=== PATIENT | female | born 1985 | race Caucasian/White ===

== ENCOUNTER → 2021-12-15 09:13 | Outpatient (BNVA) | payer MEDICARE, MEDICAID, SELFPAY | PROVIDERS: PCP Internal Medicine; Visit Provider Nurse Practitioner Family | DX: R06.83 Snoring (principal); G47.19 Other hypersomnia; G25.81 Restless legs syndrome; E66.01 Morbid (severe) obesity due to excess calories; Z68.41 Body mass index [BMI] 40.0-44.9, adult | CPT/HCPCS: 99202 ==

== ENCOUNTER → 2022-01-09 19:30 | Outpatient (REF) | payer MEDICARE, MEDICAID, SELFPAY | LOC: HO.SL 19:30 | PROVIDERS: PCP Physician Assistant; Visit Provider Nurse Practitioner Family | DX: R06.83 Snoring (principal); G47.10 Hypersomnia, unspecified | CPT/HCPCS: 95810 ==

== ENCOUNTER → 2022-06-22 07:46 | Outpatient (BNVA) | payer MEDICARE, MEDICAID, SELFPAY | PROVIDERS: PCP Physician Assistant; Visit Provider Nurse Practitioner Family | DX: G25.81 Restless legs syndrome (principal); G47.19 Other hypersomnia; R06.83 Snoring; Z79.899 Other long term (current) drug therapy | CPT/HCPCS: 99212 ==

== ENCOUNTER 2025-02-04 10:12 | Outpatient (AMB) | payer MEDICARE, MEDICAID, SELFPAY ==
--- NOTE | 2025-02-04 10:18 | MHC.OFFVIS ---
Vital Signs 02/04/25 10:24 Height 5 ft 4 in Weight 257 lb BMI 44.1 BP 111/57 L Blood Pressure Location Lt brachial Position Sitting Pulse 67 Pulse Oximetry (%) 97 Oxygen Delivery Method Room Air Intake Visit Reasons: Diarrhea Intake Note: Patient new consult for diarrhea. Patient cc: nauseas, passing kidney stones, abdominal pain with bloating, acid reflex with med, daily chronic diarrhea x 3 weeks, hx hemorrhoids. Denies any other GI issues. Electronics Warfare Technician Required: No Accompanied by: Family/Other Allergies Penicillins Allergy (Mild, Verified 02/04/25 10:18) Rash adhesive tape Allergy (Mild, Uncoded 06/22/22 07:54) Unknown latex Allergy (Unknown, Uncoded 06/22/22 07:54) Unknown Medication List - Last Reconciled 02/04/25 by Cristina Carrington CNP bupropion HCl XL 150 mg PO QAM citalopram 40 mg PO DAILY ergocalciferol (vitamin D2) 1,250 mcg PO QWEEK gabapentin 600 mg PO BID ibuprofen 800 mg PO TID PRN ocrelizumab 600 mg IV .[id number] phentermine 15 mg PO DAILY sumatriptan succinate 100 mg PO DAILY PRN topiramate 25 mg PO QID HPI HPI Diarrhea: Details: Patient is a 39-year-old female with PMH of obesity, MS, RLS and sleep disturbance. Referred by PCP for further evaluation of diarrhea secondary to suspected food allergy. Patient is accompanied by LLOYD Duffy. Patient presents with persistent, unremitting diarrhea for the past six weeks, described as constant liquid stools with associated abdominal cramping and urgency. Episodes often begin with the sensation of needing to defecate but inability to pass stool, followed by sudden onset of watery diarrhea. No periods of symptom relief reported. Prior to this, stools were mostly solid but floating, with intermittent diarrhea episodes, often triggered by dietary indiscretions or hormonal changes, particularly premenstrually and during menses. Symptoms have intensified since onset of perimenopause. Associated symptoms include severe nausea without regular vomiting, though dry heaving occurs; no hematochezia or melena noted. Patient has trialed lactose-free, gluten-free, and low FODMAP diets, with only minor improvement in abdominal discomfort but persistent diarrhea. [id number] antidiarrheals (? Imodium) provide minimal benefit, allowing for improved continence but not resolution. Mild heartburn occurs intermittently, more pronounced with Ocrevus infusions. Occasional dysphagia is present, attributed to MS-related neuromuscular and cognitive dysfunction. MS (dx 2003), with ongoing Ocrevus infusions every five months, and a history of heart palpitations leading to phentermine dose reduction in March 2024. Weight has been stable in the 250s, with prior intentional weight loss to the 220s; recent weight gain is unintentional. Patient is currently under active workup with GI at [place], including recent and pending stool and blood studies, and is scheduled for colonoscopy and upper endoscopy in April 2025. Coordination of care is ongoing to avoid redundant testing and clarify diagnosis. Patient denies: fever/chills, vomiting, appetite changes, regurgitation, dysphasia, unintentional wt loss or melena/hematochezia. Social hx: -socially ETOH use -marijuana nightly for leg pain, denies other recreational drug use -former smoker, cessation 2022 - family hx as below -denies personal hx of CA PFSH Medical History (Updated 02/04/25 @ 12:34 by Cristina Carrington CNP) Diarrhea FH: cholecystectomy Anxiety associated with section Surgical History (Updated 02/04/25 @ 10:29 by Genesis Penny) Hx of cholecystectomy Hx of section H/O angioplasty Family History (Updated 02/04/25 @ 11:14 by Cristina Carrington CNP) Maternal Grandmother Sleep apnea Brain cancer Bladder cancer Breast cancer Maternal Aunt Non Hodgkin's lymphoma Maternal Grandfather Sleep apnea Mother Colon cancer Social History Household Members: Spouse and Children Alcohol intake: current Alcohol intake frequency: holidays/special occasions only Patient Tobacco Use Status: Current someday Tobacco user Substance Use Type: Marijuana Review of Systems Const Reports as per HPI ENT Reports as per HPI Card Reports as per HPI Resp Reports as per HPI GI Reports as per HPI Reports as per HPI Physical Exam Vital Signs: Last Vital Signs Pulse 67 02/04/25 10:24 BP 111/57 L 02/04/25 10:24 Pulse Ox 97 02/04/25 10:24 Oxygen Delivery Method Room Air 02/04/25 10:24 BMI result Body Mass Index 44.1 Const General: healthy appearing, no acute distress and well developed Nutritional Appearance: average body habitus Orientation/consciousness: patient oriented x3 HEENT Head: Yes normal to inspection, Yes normocephalic and Yes atraumatic Face and sinus: Yes normal facial exam Eyes General: appearance normal, both eyes and all related structures Neck Neck: Yes normal visual inspection Resp Effort & Inspection: normal respiratory effort, able to speak in complete sentences, no tracheal deviation and symmetric chest movement Auscultation: clear to auscultation bilaterally Cardio Jugular venous distension: no JVD Rate: regular rate Rhythm: regular rhythm Heart sounds: S1 normal heart sound present, S2 normal heart sound present, no gallops and no murmurs GI Inspection: Yes normal to inspection, No distended, Yes obesity and Yes striae Palpation (GI): Soft to palpation, not firm, nontender and No hepatosplenomegaly present Auscultation: normal bowel sounds Neuro General: patient oriented x3 Gait exam (Neuro): Normal gait present Psych Appearance: grossly normal Mental Status: mental status grossly normal Speech and movement: Normal speech and movement present Affect: normal affect Attitude: cooperative Thought process: Normal thought process present Thought content: Normal thought content present Insight: Good insight present (Psych) Judgement: Good judgement present (Psych) Assessment & Plan Assessment & Plan (1) Diarrhea: Code(s): R19.7 - Diarrhea, unspecified Category: Medical Qualifiers: Diarrhea type: unspecified type Qualified Code(s): R19.7 - Diarrhea, unspecified Plan: Persistent diarrhea with associated cramping, urgency, and watery stools lasting six weeks. Possible underlying causes include celiac disease, inflammatory bowel disease, or irritable bowel syndrome. Additional Testing: -Obtain detailed records from [facility], including stool and blood tests conducted and planned colonoscopy and upper endoscopy in April 2025. -Recommendations for labs to rule out celiac disease, IBD, thyroid dysfunction, and infections per previous GI work-up results. Medication Management:Prescribed Imodium 2mg oral PRN, max 16mg per 24 hours, for symptomatic relief. Lifestyle Recommendations: -Continue Low FODMAP diet; consider gradual introduction of tolerated high-fiber options, avoiding beans, nuts, and seeds that exacerbate symptoms. -Maintain hydration. Follow-Up:Three-month follow-up post-colonoscopy and endoscopy in May 2025 to evaluate findings, symptom progression, and patient preference for GI care continuity. (2) Multiple sclerosis: Code(s): G35 - Multiple sclerosis Category: Medical Plan: Cognitive challenges and muscle weakness associated with MS causing occasional difficulty swallowing. Additional Testing: None necessary for current management unless symptoms worsen. Medication Management: Maintain current Ocrevus infusion schedule. Lifestyle Recommendations: Monitor for worsening dysphagia to ensure proper hydration and nutritional intake. Plan Follow-up after 3 months or sooner as needed Time: I spent a total of 45 minutes on the date of encounter which includes: Preparing to see the patient (reviewed previous documentation, test results and medical history) Performing a medically appropriate exam and/or evaluation Ordering medications, tests, and procedures Documenting clinical information in the health record Medications: New loperamide 4 mg, followed by 2 mg after each loose stool; maximum: 16 mg/day 120 caps 0RF loose stool Coding Level of Care Code New Pt New Pt Level 4 (95176) Patient Type New Diagnoses Diarrhea, unspecified type R19.7 Diarrhea type: unspecified type Multiple sclerosis G35
[2025-02-04 10:24] VITALS: BP 111/57; PULSE 67; O2SAT 97; BMI 44.1
--- OUTSIDE RECORDS SUMMARY | 2025-02-04 10:47 | XMS_ITS | Patient Health Record ---
Author Organization [facility] Address [address] [place] [address] [address] [place] [address] Care Team Providers Care Contract Implementation Analyst Name Role Phone Unknown, Unknown Primary Care Provider Unavailab [facility] Unavailable [phone] Syed Hinton Unavailable [phone] Allergies Allergen (clinical drug ingredient) Drug/Non Drug Allergy documented on EMR Reaction Allergy Type Onset Date Status natalizumab Tysabri Unknown Drug Allergy Activ e amoxicillin Amoxicillin yeast infection Drug Allergy Active Latex Latex rash Allergy Active Results Component Value Reference Range Notes 25-Hydroxyvitamin D LCMS D2+ [id number] Reviewed date:05/27/2024 04:06:02 PM Interpretation: Performing Lab:Roseonlyrichard Peter, [facility], Phone - [phone], Director - Kd Notes/Report: 25-Hydroxy, Vitamin D 24 Reference Range: All Ages: Target levels 30 - 100 25-Hydroxy, Vitamin D-2 5.4 This test was developed and its performance characteristics determined by [employer]. It has not been cleared or approved by the Food and Drug Administration. 25-Hydroxy, Vitamin D-3 19 This test was developed and its performance characteristics determined by [facility]. It has not been cleared or approved by the Food and Drug Administration. Comp. Metabolic Panel (14)-3 15041 Reviewed date:05/27/2024 04:06:09 PM Interpretation: Performing Lab:Mariela Peter, [address] [facility], [place], Phone - [phone], Director - Kd Notes/Report: Glucose 111 70-99 mg/dL BUN 12 6-20 mg/dL Creatinine 0.81 0.57-1.00 mg/dL eGFR 95 >59 mL/min/1.73 BUN/Creatinine Ratio 15 9-23 Sodium 146 134-144 mmol/L Potassium 4.5 3.5-5.2 mmol/L Chloride 110 96-106 mmol/L Carbon Dioxide, Total 16 20-29 mmol/L Calcium 9.0 8.7-10.2 mg/dL Protein, Total 6.4 6.0-8.5 g/dL Albumin 4.1 3.9-4.9 g/dL Globulin, Total 2.3 1.5-4.5 g/dL Bilirubin, Total 0.4 0.0-1.2 mg/dL Alkaline Phosphatase 101 44-121 IU/L AST (SGOT) 14 0-40 IU/L ALT (SGPT) 35 0-32 IU/L Lipid Panel-[id number] Reviewed date:05/27/2024 04:06:04 PM Interpretation: Performing Lab:DannyCat Amaniamarlin [address], Phone - [phone], Director - MDJodry Notes/Report: Cholesterol, Total 198 100-199 mg/dL Triglycerides 69 0-149 mg/dL HDL Cholesterol 50 >39 mg/dL VLDL Cholesterol Avery 13 5-40 mg/dL LDL Chol Calc (NIH) 135 0-99 mg/dL [id number]-[id number] Reviewed date:05/27/2024 04:05:51 PM Interpretation: Performing Lab:aMriela [address], Phone - [phone], Director - MDJodry Notes/Report: TSH 1.120 0.450-4.500 uIU/mL Hemoglobin [id number] Reviewed date:05/27/2024 04:05:53 PM Interpretation: Performing Lab:[facility] [place] [address] [place] [address], Phone - [phone], Director - MDJodry Notes/Report: Hemoglobin A1c 5.4 4.8-5.6 % . Prediabetes: 5.7 - 6.4 Diabetes: >6.4 Glycemic control for adults with diabetes: <7.0 25-Hydroxyvitamin D LCME D2+ [id number] Reviewed date:05/28/2024 07:39:20 AM Interpretation: Performing Lab:[facility] [address], Phone - [phone], Director - MDJodry Notes/Report: 25-Hydroxy, Vitamin D TNP [facility] was unable to obtain a suitable specimen for the following test(s) and is providing the patient with recollection instructions. Comp. Metabolic Panel (14)-3 51687 Reviewed date:05/28/2024 07:39:22 AM Interpretation: Performing Lab:[facility] [place], [address] [place] [address], Phone - [phone], Director - MDJo Notes/Report: Glucose TNP [facility] was unable to collect sufficient specimen to perform the following test(s), and is providing the patient with re-collection instructions. [id number] Reviewed date:05/28/2024 07:39:24 AM Interpretation: Performing Lab:[facility] [address], Phone - [phone], Director - andreia Notes/Report: TSH TNP [facility] was unable to collect sufficient specimen to perform the following test(s), and is providing the patient with re-collection instructions. Request Problem TNP [facility] was unable to collect sufficient specimen to perform the following test(s), and is providing the patient with re-collection instructions. TEST: [id number] Comp. Metabolic Panel [phone] [id number] Lipid Panel [id number] TSH Request Problem TNP [facility] was unable to collect sufficient specimen to perform the following test(s), and is providing the patient with re-collection instructions. TEST: [id number] Hemoglobin A1c Request Problem TNP [facility] was unable to obtain a suitable specimen for the following test(s) and is providing the patient with recollection instructions. TEST: [id number] 25-Hydroxyvitamin D LCMS D2+D3 Lipid Panel-[id number] Reviewed date:05/28/2024 07:39:26 AM Interpretation: Performing Lab:[facility] [address], Phone - [phone], Director - MDJodry Notes/Report: Cholesterol, Total TNP [facility] was unable to collect sufficient specimen to perform the following test(s), and is providing the patient with re-collection instructions. VLDL Cholesterol Avery TNP Unable to calculate result since non-numeric result obtained for component test. Hemoglobin [id number] Reviewed date:05/28/2024 07:39:30 AM Interpretation: Performing Lab:[facility] [place], [address] [facility], Phone - [phone], Director - Kd Notes/Report: Hemoglobin A1c [facility] was unable to collect sufficient specimen to perform the following test(s), and is providing the patient with re-collection instructions. . Prediabetes: 5.7 - 6.4 Diabetes: >6.4 Glycemic control for adults with diabetes: <7.0 Reason For Referral Reason Unspecific food alcides rgy causing diarrhea please evaluate and treat Diagnosis 1 Allergy to other sesar ds (Z91.018) Referral Organization [facility] Referring Provider First Name Syed Referring Provider Last Name Jmaaal Referred Provider Specialty Gastroentero logy General Notes Referral was faxed t o [facility]. please contact patient for scheduling., ParkerSilvia 08/16/2024 04:25:39 PM > Referral Priority Routine Medications Medication SIG (Take, Route, Frequency, Duration) Notes Start Date End Date Status Citalopram Hydrobromide 40 MG Take 1 tablet Orally Once a day Active Gemtesa 75 MG 1 tablet Orally Once a day Active Phentermine HCl 15 MG 1 capsule Orally O nce a day; Duration: 30 days 12/17/2024 Active Topiramate 100 MG 1 tablet Orally bedt eric; Duration: 30 day(s) Active Neurontin 600 MG 1 tablet Orally bedt eric; Duration: 30 day(s) Active Lasix 20 MG 1 tablet Orally Once a day; Duration: 90 Not-Taking Phentermine HCl 30 MG 1 tablet Orally On ce a day; Duration: 28 days 03/21/2023 Not-Takin g Zepbound 2.5 MG/0.5ML 0.5 mL Subcutaneou s weekly; Duration: 30 days Not-Taking Cranberry 1000 MG 21747 units Orally bedtime Active Ocrevus 300 MG/10ML 600mg Intravenous ev emma 6 months Active Phentermine HCl 30 MG 1 capsule Orally O nce a day; Duration: 30 days 08/16/2024 Not-Harmanin g Vitamin D 25 MCG (1000 UT) 1 tablet Orally Once a day Active Immunizations Vaccine Route Administration Date Status Comme nts Influenza (split), seasonal, intradermal, preservative free Unknown 04/29/2021 Administered Social History Tobacco Use: Social History Observation Description Date Details (start date - stop date) Never Smoker NA - NA Tobacco Use/Smoking Question Answer Notes Are you a nonsmoker Alcohol Screen (Audit-C) Question Answer Notes Did you have a drink containing alcohol in the p ast year? No Points 0 Interpretation Negative Problems Problem Type SNOMED Code ICD Code Onset Dates Problem Status W/U Status Risk Notes Problem Anemia (620626087) Anemia, unspecified (D64.9) Active confirmed Problem Vitamin D deficiency (14915380) Vitamin D deficiency, unspecified (E55.9) Active confirmed Problem Morbid obesity (disorder) (718271276) Morbid (severe) obesity due to excess calories (E66.01) Active confirmed Problem Mixed hyperlipidemia (318796502) Mixed hyperlipidemia (E78.2) Active confirmed Problem Generalized anxiety disorder (35362323) Generalized anxiety disorder (F41.1) Active confirmed Problem Multiple sclerosis (15112440) Multiple sclerosis (G35) Active confirmed Problem Chronic migraine without aura, non-refractory (disorder) (874753338291164) Migraine without aura, not intractable, without status migrainosus (G43.009) Active confirmed Problem Insomnia (869892892) Insomnia, unspecified (G47.00) Active confirmed Problem Polyneuropathy (32404812) Polyneuropathy, unspecified (G62.9) Active confirmed Problem Chronic pain syndrome (909167474) Chronic pain syndrome (G89.4) Active confirmed Problem Constipation (38177074) Constipation, unspecified (K59.00) Active confirmed Problem Snoring (20476282) Snoring (R06.83) Active confirmed Problem Food allergy (553167179) Allergy to other foods (Z91.018) Active confirmed Vital Signs Heart Rate 78 /min 01/15/2025 Temperature 96.6 degrees Fahrenheit 01/15/2025 Blood pressure diastolic 80 mm Hg 01/15/2025 Oximetry 99 % 01/15/2025 Height 65 in 01/15/2025 Blood pressure systolic 130 mm Hg 01/15/2025 Weight 265.8 lbs 01/15/2025 BMI 44.23 kg/m2 01/15/2025 Encounters Encounter Location Date Provider Diagnosis [facility] [address] [address] 04/26/2024 [facility] Morbid (severe) obes ity due to excess calories E66.01 ; Dietary counseling and surveillance Z71.3 ; Impaired fasting glucose R73.01 ; Mixed hyperlipidemia E78.2 ; Generalized anxiety disorder F41.1 ; Multiple sclerosis G35 and Vitamin D deficiency, unspecified E55.[address] [place] [address] 05/24/2024 DODSON GUL Morbid (severe) obes ity due to excess calories E66.01 ; Dietary counseling and surveillance Z71.3 and Mixed hyperlipidemia E78.[address] [place] [address] 06/24/2024 DODSON GUL Morbid (severe) obes ity due to excess calories E66.01 ; Dietary counseling and surveillance Z71.3 and Mixed hyperlipidemia E78.[address] [place] [address] 07/17/2024 DODSON GUL Morbid (severe) obes ity due to excess calories E66.01 ; Dietary counseling and surveillance Z71.3 and Mixed hyperlipidemia E78.[address] [place] [address] 08/16/2024 Ghadeer Mazloum Morbid (severe) obes ity due to excess calories E66.01 ; Dietary counseling and surveillance Z71.3 ; Mixed hyperlipidemia E78.2 and Allergy to other foods Z91.[address] [place] [address] 09/25/2024 Ghadeer Mazloum Morbid (severe) obes ity due to excess calories E66.01 ; Dietary counseling and surveillance Z71.3 and Mixed hyperlipidemia E78.[address] [place] [address] 10/23/2024 Ghadeer Mazloum Morbid (severe) obes ity due to excess calories E66.01 and Dietary counseling and surveillance Z71.[address] [place] [address] 11/19/2024 Ghadeer Mazloum Morbid (severe) obes ity due to excess calories E66.01 and Dietary counseling and surveillance Z71.[address] [place] [address] 01/15/2025 [facility] Morbid (severe) obes ity due to excess calories E66.01 and Dietary counseling and surveillance Z71.[address] [place] [address] 06/24/[address] [place] [address] 08/16/[address] [place] [address] 09/25/2024 Hongroni Hinton [address] [place] [address] 12/17/2024 Syed Hinton Morbid (severe) obes ity due to excess calories E66.[address] [place] [address] 01/27/[address] [address] [place] [address] 10/01/2024 Unknown Unknown [address] [place] [address] 10/03/2024 Syed Marcochristina Assessments Encounter Date Diagnosis (ICD Code) Assessment Notes Treatment Notes Treatment Clinical Notes Section Notes 05/24/2024 Morbid (severe) obesity due to excess calories (ICD-10 - E66.01) Miriam is 38 years old lady with MS, migraine headaches, generalized anxiety disorder, anemia, vitamin D deficiency, polyneuropathy, insomnia is here for medical weight management. She also had blood work done which is not complete. Plan is as follows Hyperlipidemia. Cholesterol panel is within reasonable limits. Dietary recommendations. Food recall was done today and patient advised to be on low calorie, low carbohydrate diet. Restrict calories to less than 1500 kcal in 24 hours. Low glycemic index foods and encouraged. Meal replacements were recommended. Advised to use siaa-oav-giapqtv multivitamins and vitamin D. Advised to use calorie counter and adhere to portion control. Monthly goal is to lose 4-6 pounds Pharmacotherapy. started on phentermine 15 mg and will titrate up as tolerated Side effects explained to the patient. Goal is to lose 3-5% of body weight in 3 months. Exercise. Patient encouraged to increase frequency, intensity and duration of exercise. Encouraged to burn at least 250-500 kcal in one session. Also encouraged to do weight training Assess. Different risk factors discussed with the patient and addressed Advise. Patient was given clear And specific advise that she will comply with Low-calorie diet and try not to exceed more than 1300 kcal in 24 hours. Agree. Mutually agreed to work together to achieve appropriate goals Assist. Motivational interviewing done. Arrange. Follow-up appointment arranged. Counseling. 20 minutes spent Face to face with the patient more than 50% of time was spent counseling the hemoglobin A1c is normal. Screening blood work reviewed. 05/24/2024 Dietary counseling and surveillance (ICD-10 - Z71.3) Miriam is 38 years old lady with MS, migraine headaches, generalized anxiety disorder, anemia, vitamin D deficiency, polyneuropathy, insomnia is here for medical weight management. She also had blood work done which is not complete. Plan is as follows Hyperlipidemia. Cholesterol panel is within reasonable limits. Dietary recommendations. Food recall was done today and patient advised to be on low calorie, low carbohydrate diet. Restrict calories to less than 1500 kcal in 24 hours. Low glycemic index foods and encouraged. Meal replacements were recommended. Advised to use qzwa-jkp-dptfasf multivitamins and vitamin D. Advised to use calorie counter and adhere to portion control. Monthly goal is to lose 4-6 pounds Pharmacotherapy. started on phentermine 15 mg and will titrate up as tolerated Side effects explained to the patient. Goal is to lose 3-5% of body weight in 3 months. Exercise. Patient encouraged to increase frequency, intensity and duration of exercise. Encouraged to burn at least 250-500 kcal in one session. Also encouraged to do weight training Assess. Different risk factors discussed with the patient and addressed Advise. Patient was given clear And specific advise that she will comply with Low-calorie diet and try not to exceed more than 1300 kcal in 24 hours. Agree. Mutually agreed to work together to achieve appropriate goals Assist. Motivational interviewing done. Arrange. Follow-up appointment arranged. Counseling. 20 minutes spent Face to face with the patient more than 50% of time was spent counseling the hemoglobin A1c is normal. Screening blood work reviewed. 06/24/2024 Morbid (severe) obesity due to excess calories (ICD-10 - E66.01) Miriam is 38 years old lady with MS, migraine headaches, generalized anxiety disorder, anemia, vitamin D deficiency, polyneuropathy, insomnia is here for medical weight management. She gained 4 pounds since last visit. Plan is as follows Hyperlipidemia. Cholesterol panel is within reasonable limits. Dietary recommendations. Food recall was done today and patient advised to be on low calorie, low carbohydrate diet. Restrict calories to less than 1500 kcal in 24 hours. Low glycemic index foods and encouraged. Meal replacements were recommended. Advised to use hsyg-idv-vkejany multivitamins and vitamin D. Advised to use calorie counter and adhere to portion control. Monthly goal is to lose 4-6 pounds Pharmacotherapy. increase phentermine 30 mg and will titrate up as tolerated Side effects explained to the patient. Goal is to lose 3-5% of body weight in 3 months. She has multiple comorbidities like MS and she walks with a walker, hyperlipidemia, impaired fasting glucose and she is struggling to lose weight on conventional medications like phentermine. She will benefit from wegovy or zepbound and decreased risk of cardiovascular disease, strokes, cancers in future. We will send prescription for Zepbound and meanwhile she will continue on phentermine and once she receives Zepbound she will stop phentermine. Exercise. Patient encouraged to increase frequency, intensity and duration of exercise. Encouraged to burn at least 250-500 kcal in one session. Also encouraged to do weight training Assess. Different risk factors discussed with the patient and addressed Advise. Patient was given clear And specific advise that she will comply with Low-calorie diet and try not to exceed more than 1300 kcal in 24 hours. Agree. Mutually agreed to work together to achieve appropriate goals Assist. Motivational interviewing done. Arrange. Follow-up appointment arranged. Counseling. 20 minutes spent Face to face with the patient more than 50% of time was spent counseling the hemoglobin A1c is normal. Screening blood work reviewed. 06/24/2024 Dietary counseling and surveillance (ICD-10 - Z71.3) Miriam is 38 years old lady with MS, migraine headaches, generalized anxiety disorder, anemia, vitamin D deficiency, polyneuropathy, insomnia is here for medical weight management. She gained 4 pounds since last visit. Plan is as follows Hyperlipidemia. Cholesterol panel is within reasonable limits. Dietary recommendations. Food recall was done today and patient advised to be on low calorie, low carbohydrate diet. Restrict calories to less than 1500 kcal in 24 hours. Low glycemic index foods and encouraged. Meal replacements were recommended. Advised to use cdsp-xuc-nyzkuod multivitamins and vitamin D. Advised to use calorie counter and adhere to portion control. Monthly goal is to lose 4-6 pounds Pharmacotherapy. increase phentermine 30 mg and will titrate up as tolerated Side effects explained to the patient. Goal is to lose 3-5% of body weight in 3 months. She has multiple comorbidities like MS and she walks with a walker, hyperlipidemia, impaired fasting glucose and she is struggling to lose weight on conventional medications like phentermine. She will benefit from wegovy or zepbound and decreased risk of cardiovascular disease, strokes, cancers in future. We will send prescription for Zepbound and meanwhile she will continue on phentermine and once she receives Zepbound she will stop phentermine. Exercise. Patient encouraged to increase frequency, intensity and duration of exercise. Encouraged to burn at least 250-500 kcal in one session. Also encouraged to do weight training Assess. Different risk factors discussed with the patient and addressed Advise. Patient was given clear And specific advise that she will comply with Low-calorie diet and try not to exceed more than 1300 kcal in 24 hours. Agree. Mutually agreed to work together to achieve appropriate goals Assist. Motivational interviewing done. Arrange. Follow-up appointment arranged. Counseling. 20 minutes spent Face to face with the patient more than 50% of time was spent counseling the hemoglobin A1c is normal. Screening blood work reviewed. 07/17/2024 Morbid (severe) obesity due to excess calories (ICD-10 - E66.01) Miriam is 38 years old lady with MS, migraine headaches, generalized anxiety disorder, anemia, vitamin D deficiency, polyneuropathy, insomnia is here for medical weight management. She lost 8 pounds since last visit. Plan is as follows Hyperlipidemia. Cholesterol panel is within reasonable limits. Dietary recommendations. Food recall was done today and patient advised to be on low calorie, low carbohydrate diet. Restrict calories to less than 1500 kcal in 24 hours. Low glycemic index foods and encouraged. Meal replacements were recommended. Advised to use uyhb-ipu-bqixrja multivitamins and vitamin D. Advised to use calorie counter and adhere to portion control. Monthly goal is to lose 4-6 pounds Pharmacotherapy. increase phentermine 30 mg and will titrate up as tolerated Side effects explained to the patient. Goal is to lose 3-5% of body weight in 3 months. She has multiple comorbidities like MS and she walks with a walker, hyperlipidemia, impaired fasting glucose and she is struggling to lose weight on conventional medications like phentermine. She will benefit from wegovy or zepbound and decreased risk of cardiovascular disease, strokes, cancers in future. We will send prescription for Zepbound and meanwhile she will continue on phentermine and once she receives Zepbound she will stop phentermine. Exercise. Patient encouraged to increase frequency, intensity and duration of exercise. Encouraged to burn at least 250-500 kcal in one session. Also encouraged to do weight training Assess. Different risk factors discussed with the patient and addressed Advise. Patient was given clear And specific advise that she will comply with Low-calorie diet and try not to exceed more than 1300 kcal in 24 hours. Agree. Mutually agreed to work together to achieve appropriate goals Assist. Motivational interviewing done. Arrange. Follow-up appointment arranged. Counseling. 15 minutes spent Face to face with the patient more than 50% of time was spent counseling 07/17/2024 Dietary counseling and surveillance (ICD-10 - Z71.3) Miriam is 38 years old lady with MS, migraine headaches, generalized anxiety disorder, anemia, vitamin D deficiency, polyneuropathy, insomnia is here for medical weight management. She lost 8 pounds since last visit. Plan is as follows Hyperlipidemia. Cholesterol panel is within reasonable limits. Dietary recommendations. Food recall was done today and patient advised to be on low calorie, low carbohydrate diet. Restrict calories to less than 1500 kcal in 24 hours. Low glycemic index foods and encouraged. Meal replacements were recommended. Advised to use eddu-tvy-nyptkuh multivitamins and vitamin D. Advised to use calorie counter and adhere to portion control. Monthly goal is to lose 4-6 pounds Pharmacotherapy. increase phentermine 30 mg and will titrate up as tolerated Side effects explained to the patient. Goal is to lose 3-5% of body weight in 3 months. She has multiple comorbidities like MS and she walks with a walker, hyperlipidemia, impaired fasting glucose and she is struggling to lose weight on conventional medications like phentermine. She will benefit from wegovy or zepbound and decreased risk of cardiovascular disease, strokes, cancers in future. We will send prescription for Zepbound and meanwhile she will continue on phentermine and once she receives Zepbound she will stop phentermine. Exercise. Patient encouraged to increase frequency, intensity and duration of exercise. Encouraged to burn at least 250-500 kcal in one session. Also encouraged to do weight training Assess. Different risk factors discussed with the patient and addressed Advise. Patient was given clear And specific advise that she will comply with Low-calorie diet and try not to exceed more than 1300 kcal in 24 hours. Agree. Mutually agreed to work together to achieve appropriate goals Assist. Motivational interviewing done. Arrange. Follow-up appointment arranged. Counseling. 15 minutes spent Face to face with the patient more than 50% of time was spent counseling 08/16/2024 Morbid (severe) obesity due to excess calories (ICD-10 - E66.01) Miriam is 39 years old lady with MS, migraine headaches, generalized anxiety disorder, anemia, vitamin D deficiency, polyneuropathy, insomnia is here for medical weight management. She Gained 3 pounds since last visit. She has been noncompliant with the diet and the medication. Plan is as follows Hyperlipidemia. Cholesterol panel is within reasonable limits. Dietary recommendations. Food recall was done today and patient advised to be on low calorie, low carbohydrate diet. Restrict calories to less than 1500 kcal in 24 hours. Low glycemic index foods and encouraged. Meal replacements were recommended. Advised to use dmyq-vji-mtwofbz multivitamins and vitamin D. Advised to use calorie counter and adhere to portion control. Monthly goal is to lose 4-6 pounds Pharmacotherapy. Continue on phentermine 30 mg and will titrate up as tolerated Side effects explained to the patient. Goal is to lose 3-5% of body weight in 3 months. She has multiple comorbidities like MS and she walks with a walker, hyperlipidemia, impaired fasting glucose and she is struggling to lose weight on conventional medications like phentermine. Awaiting Zepbound approval. She will benefit from wegovy or zepbound and decreased risk of cardiovascular disease, strokes, cancers in future. We will send prescription for Zepbound and meanwhile she will continue on phentermine and once she receives Zepbound she will stop phentermine. Exercise. Patient encouraged to increase frequency, intensity and duration of exercise. Encouraged to burn at least 250-500 kcal in one session. Also encouraged to do weight training Assess. Different risk factors discussed with the patient and addressed Advise. Patient was given clear And specific advise that she will comply with Low-calorie diet and try not to exceed more than 1300 kcal in 24 hours. Agree. Mutually agreed to work together to achieve appropriate goals Assist. Motivational interviewing done. Arrange. Follow-up appointment arranged. Counseling. 15 minutes spent Face to face with the patient more than 50% of time was spent counseling Food sensitivity causing diarrhea - I have informed patient that leafy greens are usually high in fibers thus it causes diarrhea. We will also defer to GI for further eval. I have rendered the services for this patient under direct supervision of Dr. Law, who did not see the patient but was available upon request 08/16/2024 Dietary counseling and surveillance (ICD-10 - Z71.3) Miriam is 39 years old lady with MS, migraine headaches, generalized anxiety disorder, anemia, vitamin D deficiency, polyneuropathy, insomnia is here for medical weight management. She Gained 3 pounds since last visit. She has been noncompliant with the diet and the medication. Plan is as follows Hyperlipidemia. Cholesterol panel is within reasonable limits. Dietary recommendations. Food recall was done today and patient advised to be on low calorie, low carbohydrate diet. Restrict calories to less than 1500 kcal in 24 hours. Low glycemic index foods and encouraged. Meal replacements were recommended. Advised to use hnwj-zgy-tejvdai multivitamins and vitamin D. Advised to use calorie counter and adhere to portion control. Monthly goal is to lose 4-6 pounds Pharmacotherapy. Continue on phentermine 30 mg and will titrate up as tolerated Side effects explained to the patient. Goal is to lose 3-5% of body weight in 3 months. She has multiple comorbidities like MS and she walks with a walker, hyperlipidemia, impaired fasting glucose and she is struggling to lose weight on conventional medications like phentermine. Awaiting Zepbound approval. She will benefit from wegovy or zepbound and decreased risk of cardiovascular disease, strokes, cancers in future. We will send prescription for Zepbound and meanwhile she will continue on phentermine and once she receives Zepbound she will stop phentermine. Exercise. Patient encouraged to increase frequency, intensity and duration of exercise. Encouraged to burn at least 250-500 kcal in one session. Also encouraged to do weight training Assess. Different risk factors discussed with the patient and addressed Advise. Patient was given clear And specific advise that she will comply with Low-calorie diet and try not to exceed more than 1300 kcal in 24 hours. Agree. Mutually agreed to work together to achieve appropriate goals Assist. Motivational interviewing done. Arrange. Follow-up appointment arranged. Counseling. 15 minutes spent Face to face with the patient more than 50% of time was spent counseling Food sensitivity causing diarrhea - I have informed patient that leafy greens are usually high in fibers thus it causes diarrhea. We will also defer to GI for further eval. I have rendered the services for this patient under direct supervision of Dr. Law, who did not see the patient but was available upon request 09/25/2024 Dietary counseling and surveillance (ICD-10 - Z71.3) Miriam is 39 years old lady with MS, migraine headaches, generalized anxiety disorder, anemia, vitamin D deficiency, polyneuropathy, insomnia is here for medical weight management. She Gained 3 pounds since last visit. She has been noncompliant with the diet and the medication. Plan is as follows Hyperlipidemia. Cholesterol panel is within reasonable limits. Dietary recommendations. Food recall was done today and patient advised to be on low calorie, low carbohydrate diet. Restrict calories to less than 1500 kcal in 24 hours. Low glycemic index foods and encouraged. Meal replacements were recommended. Advised to use kkim-ynn-kfxbbgj multivitamins and vitamin D. Advised to use calorie counter and adhere to portion control. Monthly goal is to lose 4-6 pounds Pharmacotherapy. Continue on phentermine 30 mg and will titrate up as tolerated Side effects explained to the patient. Goal is to lose 3-5% of body weight in 3 months. She has multiple comorbidities like MS and she walks with a walker, hyperlipidemia, impaired fasting glucose and she is struggling to lose weight on conventional medications like phentermine. Awaiting Zepbound approval. She will benefit from wegovy or zepbound and decreased risk of cardiovascular disease, strokes, cancers in future. We will send prescription for Zepbound and meanwhile she will continue on phentermine and once she receives Zepbound she will stop phentermine. Exercise. Patient encouraged to increase frequency, intensity and duration of exercise. Encouraged to burn at least 250-500 kcal in one session. Also encouraged to do weight training Assess. Different risk factors discussed with the patient and addressed Advise. Patient was given clear And specific advise that she will comply with Low-calorie diet and try not to exceed more than 1300 kcal in 24 hours. Agree. Mutually agreed to work together to achieve appropriate goals Assist. Motivational interviewing done. Arrange. Follow-up appointment arranged. Counseling. 15 minutes spent Face to face with the patient more than 50% of time was spent counseling I have rendered the services for this patient under direct supervision of Dr. Law, who did not see the patient but was available upon request 10/23/2024 Morbid (severe) obesity due to excess calories (ICD-10 - E66.01) Miriam is 39 years old lady with MS, migraine headaches, generalized anxiety disorder, anemia, vitamin D deficiency, polyneuropathy, insomnia is here for medical weight management. She Gained 3 pounds since last visit. She has been noncompliant with the diet and the medication. Plan is as follows Hyperlipidemia. Cholesterol panel is within reasonable limits. Dietary recommendations. Food recall was done today and patient advised to be on low calorie, low carbohydrate diet. Restrict calories to less than 1500 kcal in 24 hours. Low glycemic index foods and encouraged. Meal replacements were recommended. Advised to use fbkw-sxm-ubecsbq multivitamins and vitamin D. Advised to use calorie counter and adhere to portion control. Monthly goal is to lose 4-6 pounds Pharmacotherapy.Dec rease phentermine to 15 mg. Side effects explained to the patient. Goal is to lose 3-5% of body weight in 3 months. She has multiple comorbidities like MS and she walks with a walker, hyperlipidemia, impaired fasting glucose and she is struggling to lose weight on conventional medications like phentermine. Unfortunately, her insurance does not cover GLP-1/. Exercise. Patient encouraged to increase frequency, intensity and duration of exercise. Encouraged to burn at least 250-500 kcal in one session. Also encouraged to do weight training Assess. Different risk factors discussed with the patient and addressed Advise. Patient was given clear And specific advise that she will comply with Low-calorie diet and try not to exceed more than 1300 kcal in 24 hours. Agree. Mutually agreed to work together to achieve appropriate goals Assist. Motivational interviewing done. Arrange. Follow-up appointment arranged. Counseling. 15 minutes spent Face to face with the patient more than 50% of time was spent counseling I have rendered the services for this patient under direct supervision of Dr. Law, who did not see the patient but was available upon request 10/23/2024 Dietary counseling and surveillance (ICD-10 - Z71.3) Miriam is 39 years old lady with MS, migraine headaches, generalized anxiety disorder, anemia, vitamin D deficiency, polyneuropathy, insomnia is here for medical weight management. She Gained 3 pounds since last visit. She has been noncompliant with the diet and the medication. Plan is as follows Hyperlipidemia. Cholesterol panel is within reasonable limits. Dietary recommendations. Food recall was done today and patient advised to be on low calorie, low carbohydrate diet. Restrict calories to less than 1500 kcal in 24 hours. Low glycemic index foods and encouraged. Meal replacements were recommended. Advised to use xisp-rlj-axniabi multivitamins and vitamin D. Advised to use calorie counter and adhere to portion control. Monthly goal is to lose 4-6 pounds Pharmacotherapy.Dec rease phentermine to 15 mg. Side effects explained to the patient. Goal is to lose 3-5% of body weight in 3 months. She has multiple comorbidities like MS and she walks with a walker, hyperlipidemia, impaired fasting glucose and she is struggling to lose weight on conventional medications like phentermine. Unfortunately, her insurance does not cover GLP-1/. Exercise. Patient encouraged to increase frequency, intensity and duration of exercise. Encouraged to burn at least 250-500 kcal in one session. Also encouraged to do weight training Assess. Different risk factors discussed with the patient and addressed Advise. Patient was given clear And specific advise that she will comply with Low-calorie diet and try not to exceed more than 1300 kcal in 24 hours. Agree. Mutually agreed to work together to achieve appropriate goals Assist. Motivational interviewing done. Arrange. Follow-up appointment arranged. Counseling. 15 minutes spent Face to face with the patient more than 50% of time was spent counseling I have rendered the services for this patient under direct supervision of Dr. Law, who did not see the patient but was available upon request 11/19/2024 Morbid (severe) obesity due to excess calories (ICD-10 - E66.01) Miriam is 39 years old lady with MS, migraine headaches, generalized anxiety disorder, anemia, vitamin D deficiency, polyneuropathy, insomnia is here for medical weight management. She Lost 2 pounds since last visit. Trying to be compliant with the diet and the medication. Plan is as follows Hyperlipidemia. Cholesterol panel is within reasonable limits. Dietary recommendations. Food recall was done today and patient advised to be on low calorie, low carbohydrate diet. Restrict calories to less than 1500 kcal in 24 hours. Low glycemic index foods and encouraged. Meal replacements were recommended. Advised to use tviv-hpn-dfsddea multivitamins and vitamin D. Advised to use calorie counter and adhere to portion control. Monthly goal is to lose 4-6 pounds Pharmacotherapy.Con tinue on phentermine to 15 mg. Side effects explained to the patient. Goal is to lose 3-5% of body weight in 3 months. She has multiple comorbidities like MS and she walks with a walker, hyperlipidemia, impaired fasting glucose and she is struggling to lose weight on conventional medications like phentermine. Unfortunately, her insurance does not cover GLP-1/. Exercise. Patient encouraged to increase frequency, intensity and duration of exercise. Encouraged to burn at least 250-500 kcal in one session. Also encouraged to do weight training Assess. Different risk factors discussed with the patient and addressed Advise. Patient was given clear And specific advise that she will comply with Low-calorie diet and try not to exceed more than 1300 kcal in 24 hours. Agree. Mutually agreed to work together to achieve appropriate goals Assist. Motivational interviewing done. Arrange. Follow-up appointment arranged. Counseling. 15 minutes spent Face to face with the patient more than 50% of time was spent counseling I have rendered the services for this patient under direct supervision of Dr. Law, who did not see the patient but was available upon request 11/19/2024 Dietary counseling and surveillance (ICD-10 - Z71.3) Miriam is 39 years old lady with MS, migraine headaches, generalized anxiety disorder, anemia, vitamin D deficiency, polyneuropathy, insomnia is here for medical weight management. She Lost 2 pounds since last visit. Trying to be compliant with the diet and the medication. Plan is as follows Hyperlipidemia. Cholesterol panel is within reasonable limits. Dietary recommendations. Food recall was done today and patient advised to be on low calorie, low carbohydrate diet. Restrict calories to less than 1500 kcal in 24 hours. Low glycemic index foods and encouraged. Meal replacements were recommended. Advised to use tzvz-dpf-gheahmy multivitamins and vitamin D. Advised to use calorie counter and adhere to portion control. Monthly goal is to lose 4-6 pounds Pharmacotherapy.Con tinue on phentermine to 15 mg. Side effects explained to the patient. Goal is to lose 3-5% of body weight in 3 months. She has multiple comorbidities like MS and she walks with a walker, hyperlipidemia, impaired fasting glucose and she is struggling to lose weight on conventional medications like phentermine. Unfortunately, her insurance does not cover GLP-1/. Exercise. Patient encouraged to increase frequency, intensity and duration of exercise. Encouraged to burn at least 250-500 kcal in one session. Also encouraged to do weight training Assess. Different risk factors discussed with the patient and addressed Advise. Patient was given clear And specific advise that she will comply with Low-calorie diet and try not to exceed more than 1300 kcal in 24 hours. Agree. Mutually agreed to work together to achieve appropriate goals Assist. Motivational interviewing done. Arrange. Follow-up appointment arranged. Counseling. 15 minutes spent Face to face with the patient more than 50% of time was spent counseling I have rendered the services for this patient under direct supervision of Dr. Law, who did not see the patient but was available upon request 12/17/2024 Morbid (severe) obesity due to excess calories (ICD-10 - E66.01) 01/15/2025 Morbid (severe) obesity due to excess calories (ICD-10 - E66.01) Miriam is 39 years old lady with MS, mixed hyperlipidemia, generalized anxiety disorder, neuropathy is here today for medical weight management. She was diagnosed recently with vestibular migraine at [facility] and had significant workup. She is currently going to vestibular therapy. She was not very active in the past few weeks. She weighed 263 pounds at home. Dietary recommendations. Food recall was done today and patient advised to be on low calorie, low carbohydrate diet. Restrict calories to less than 1500 kcal in 24 hours. Low glycemic index foods and encouraged. Meal replacements were recommended. Advised to use fgbk-dkq-yrhimld multivitamins and vitamin D. Advised to use calorie counter and adhere to portion control. Monthly goal is to lose 4-6 pounds Pharmacotherapy. Continue on current regimen. Side effects explained to the patient. Goal is to lose 3-5% of body weight in 3 months. Exercise. Patient encouraged to increase frequency, intensity and duration of exercise. Encouraged to burn at least 250-500 kcal in one session. Also encouraged to do weight training Assess. Different risk factors discussed with the patient and addressed Advise. Patient was given clear And specific advise that she will comply with Low-calorie diet and try not to exceed more than 1300 kcal in 24 hours. Agree. Mutually agreed to work together to achieve appropriate goals Assist. Motivational interviewing done. Arrange. Follow-up appointment arranged. Counseling. 15 minutes spent Face to face with the patient more than 50% of time was spent counseling 01/15/2025 Dietary counseling and surveillance (ICD-10 - Z71.3) Miriam is 39 years old lady with MS, mixed hyperlipidemia, generalized anxiety disorder, neuropathy is here today for medical weight management. She was diagnosed recently with vestibular migraine at [facility] and had significant workup. She is currently going to vestibular therapy. She was not very active in the past few weeks. She weighed 263 pounds at home. Dietary recommendations. Food recall was done today and patient advised to be on low calorie, low carbohydrate diet. Restrict calories to less than 1500 kcal in 24 hours. Low glycemic index foods and encouraged. Meal replacements were recommended. Advised to use oorz-kiq-bdkhanz multivitamins and vitamin D. Advised to use calorie counter and adhere to portion control. Monthly goal is to lose 4-6 pounds Pharmacotherapy. Continue on current regimen. Side effects explained to the patient. Goal is to lose 3-5% of body weight in 3 months. Exercise. Patient encouraged to increase frequency, intensity and duration of exercise. Encouraged to burn at least 250-500 kcal in one session. Also encouraged to do weight training Assess. Different risk factors discussed with the patient and addressed Advise. Patient was given clear And specific advise that she will comply with Low-calorie diet and try not to exceed more than 1300 kcal in 24 hours. Agree. Mutually agreed to work together to achieve appropriate goals Assist. Motivational interviewing done. Arrange. Follow-up appointment arranged. Counseling. 15 minutes spent Face to face with the patient more than 50% of time was spent counseling 04/26/2024 Morbid (severe) obesity due to excess calories (ICD-10 - E66.01) Ms Suh is a 37 year old lady here today for medical weight management. We saw her in March 2023. She gained 14 lbs since last visit. it is multifactorial and is because of sedentary lifestyle high calorie diet and medication induced. She was bedridden and was on a wheelchair d/t recent right ribia fracture and she uses a cane to walk at this point. Plan is as follows: Dietary recommendations. Food recall was done today and patient advised to be on low calorie, low carbohydrate diet. Restrict calories to less than 1500 kcal in 24 hours. Low glycemic index foods and encouraged. Meal replacements were recommended. Advised to use dkte-teh-elotrza multivitamins and vitamin D. Advised to use calorie counter and adhere to portion control. Monthly goal is to lose 4-6 pounds Pharmacotherapy. she is not on phentermine and continue Topamax 100 MG once a day. Side effects explained to the patient.. She is interested in GLP-1 and she does not have any contraindication but her insurance will not cover. Exercise. Patient encouraged to increase frequency, intensity and duration of exercise. Encouraged to burn at least 250-500 kcal in one session. Also encouraged to do weight training Assess. Different risk factors discussed with the patient and addressed Advise. Patient was given clear And specific advise that she will comply with Low-calorie diet and try not to exceed more than 1300 kcal in 24 hours. Agree. Mutually agreed to work together to achieve appropriate goals Assist. Motivational interviewing done. Arrange. Follow-up appointment arranged. Counseling. 15 minutes spent Face to face with the patient more than 50% of time was spent counseling Pedal edema. Keep legs elevated and she can also use compression stockings. IFG.weight loss, dietary changes and check A1c Generalized anxiety disorder. Stable on Celexa. She does not see a therapist or counselor Multiple sclerosis. She follows up with neurologist and currently on biologic's. she is also on Neurontin for neuropathic pain. She needs help with activities of daily living and she has [employer] for 35 hours a week. Screening blood work before next appointment. General health concerns discussed with patient. Scribe services used to formulate this note under HIPAA compliance and under [place] law mandated for scribe services. Patient aware of service. Verbal consent and written consent taken from the patient. Patient understands and verbalizes understanding of the scribes services and all questions answered regarding scribes services. Patient agrees to use of scribes services. 09/25/2024 Morbid (severe) obesity due to excess calories (ICD-10 - E66.01) Miriam is 39 years old lady with MS, migraine headaches, generalized anxiety disorder, anemia, vitamin D deficiency, polyneuropathy, insomnia is here for medical weight management. She Gained 3 pounds since last visit. She has been noncompliant with the diet and the medication. Plan is as follows Hyperlipidemia. Cholesterol panel is within reasonable limits. Dietary recommendations. Food recall was done today and patient advised to be on low calorie, low carbohydrate diet. Restrict calories to less than 1500 kcal in 24 hours. Low glycemic index foods and encouraged. Meal replacements were recommended. Advised to use tjyh-uwn-zgshbpp multivitamins and vitamin D. Advised to use calorie counter and adhere to portion control. Monthly goal is to lose 4-6 pounds Pharmacotherapy. Continue on phentermine 30 mg and will titrate up as tolerated Side effects explained to the patient. Goal is to lose 3-5% of body weight in 3 months. She has multiple comorbidities like MS and she walks with a walker, hyperlipidemia, impaired fasting glucose and she is struggling to lose weight on conventional medications like phentermine. Awaiting Zepbound approval. She will benefit from wegovy or zepbound and decreased risk of cardiovascular disease, strokes, cancers in future. We will send prescription for Zepbound and meanwhile she will continue on phentermine and once she receives Zepbound she will stop phentermine. Exercise. Patient encouraged to increase frequency, intensity and duration of exercise. Encouraged to burn at least 250-500 kcal in one session. Also encouraged to do weight training Assess. Different risk factors discussed with the patient and addressed Advise. Patient was given clear And specific advise that she will comply with Low-calorie diet and try not to exceed more than 1300 kcal in 24 hours. Agree. Mutually agreed to work together to achieve appropriate goals Assist. Motivational interviewing done. Arrange. Follow-up appointment arranged. Counseling. 15 minutes spent Face to face with the patient more than 50% of time was spent counseling I have rendered the services for this patient under direct supervision of Dr. Law, who did not see the patient but was available upon request 04/26/2024 Dietary counseling and surveillance (ICD-10 - Z71.3) Ms Suh is a 37 year old lady here today for medical weight management. We saw her in March 2023. She gained 14 lbs since last visit. it is multifactorial and is because of sedentary lifestyle high calorie diet and medication induced. She was bedridden and was on a wheelchair d/t recent right ribia fracture and she uses a cane to walk at this point. Plan is as follows: Dietary recommendations. Food recall was done today and patient advised to be on low calorie, low carbohydrate diet. Restrict calories to less than 1500 kcal in 24 hours. Low glycemic index foods and encouraged. Meal replacements were recommended. Advised to use uube-qyp-tpxiahh multivitamins and vitamin D. Advised to use calorie counter and adhere to portion control. Monthly goal is to lose 4-6 pounds Pharmacotherapy. she is not on phentermine and continue Topamax 100 MG once a day. Side effects explained to the patient.. She is interested in GLP-1 and she does not have any contraindication but her insurance will not cover. Exercise. Patient encouraged to increase frequency, intensity and duration of exercise. Encouraged to burn at least 250-500 kcal in one session. Also encouraged to do weight training Assess. Different risk factors discussed with the patient and addressed Advise. Patient was given clear And specific advise that she will comply with Low-calorie diet and try not to exceed more than 1300 kcal in 24 hours. Agree. Mutually agreed to work together to achieve appropriate goals Assist. Motivational interviewing done. Arrange. Follow-up appointment arranged. Counseling. 15 minutes spent Face to face with the patient more than 50% of time was spent counseling Pedal edema. Keep legs elevated and she can also use compression stockings. IFG.weight loss, dietary changes and check A1c Generalized anxiety disorder. Stable on Celexa. She does not see a therapist or counselor Multiple sclerosis. She follows up with neurologist and currently on biologic's. she is also on Neurontin for neuropathic pain. She needs help with activities of daily living and she has [employer] for 35 hours a week. Screening blood work before next appointment. General health concerns discussed with patient. Scribe services used to formulate this note under HIPAA compliance and under [place] law mandated for scribe services. Patient aware of service. Verbal consent and written consent taken from the patient. Patient understands and verbalizes understanding of the scribes services and all questions answered regarding scribes services. Patient agrees to use of scribes services. 09/25/2024 Mixed hyperlipidemia (ICD-10 - E78.2) Miriam is 39 years old lady with MS, migraine headaches, generalized anxiety disorder, anemia, vitamin D deficiency, polyneuropathy, insomnia is here for medical weight management. She Gained 3 pounds since last visit. She has been noncompliant with the diet and the medication. Plan is as follows Hyperlipidemia. Cholesterol panel is within reasonable limits. Dietary recommendations. Food recall was done today and patient advised to be on low calorie, low carbohydrate diet. Restrict calories to less than 1500 kcal in 24 hours. Low glycemic index foods and encouraged. Meal replacements were recommended. Advised to use eixf-mql-ksjernj multivitamins and vitamin D. Advised to use calorie counter and adhere to portion control. Monthly goal is to lose 4-6 pounds Pharmacotherapy. Continue on phentermine 30 mg and will titrate up as tolerated Side effects explained to the patient. Goal is to lose 3-5% of body weight in 3 months. She has multiple comorbidities like MS and she walks with a walker, hyperlipidemia, impaired fasting glucose and she is struggling to lose weight on conventional medications like phentermine. Awaiting Zepbound approval. She will benefit from wegovy or zepbound and decreased risk of cardiovascular disease, strokes, cancers in future. We will send prescription for Zepbound and meanwhile she will continue on phentermine and once she receives Zepbound she will stop phentermine. Exercise. Patient encouraged to increase frequency, intensity and duration of exercise. Encouraged to burn at least 250-500 kcal in one session. Also encouraged to do weight training Assess. Different risk factors discussed with the patient and addressed Advise. Patient was given clear And specific advise that she will comply with Low-calorie diet and try not to exceed more than 1300 kcal in 24 hours. Agree. Mutually agreed to work together to achieve appropriate goals Assist. Motivational interviewing done. Arrange. Follow-up appointment arranged. Counseling. 15 minutes spent Face to face with the patient more than 50% of time was spent counseling I have rendered the services for this patient under direct supervision of Dr. Law, who did not see the patient but was available upon request 04/26/2024 Impaired fasting glucose (ICD-10 - R73.01) Ms Suh is a 37 year old lady here today for medical weight management. We saw her in March 2023. She gained 14 lbs since last visit. it is multifactorial and is because of sedentary lifestyle high calorie diet and medication induced. She was bedridden and was on a wheelchair d/t recent right ribia fracture and she uses a cane to walk at this point. Plan is as follows: Dietary recommendations. Food recall was done today and patient advised to be on low calorie, low carbohydrate diet. Restrict calories to less than 1500 kcal in 24 hours. Low glycemic index foods and encouraged. Meal replacements were recommended. Advised to use fnhu-sie-qzfqjrf multivitamins and vitamin D. Advised to use calorie counter and adhere to portion control. Monthly goal is to lose 4-6 pounds Pharmacotherapy. she is not on phentermine and continue Topamax 100 MG once a day. Side effects explained to the patient.. She is interested in GLP-1 and she does not have any contraindication but her insurance will not cover. Exercise. Patient encouraged to increase frequency, intensity and duration of exercise. Encouraged to burn at least 250-500 kcal in one session. Also encouraged to do weight training Assess. Different risk factors discussed with the patient and addressed Advise. Patient was given clear And specific advise that she will comply with Low-calorie diet and try not to exceed more than 1300 kcal in 24 hours. Agree. Mutually agreed to work together to achieve appropriate goals Assist. Motivational interviewing done. Arrange. Follow-up appointment arranged. Counseling. 15 minutes spent Face to face with the patient more than 50% of time was spent counseling Pedal edema. Keep legs elevated and she can also use compression stockings. IFG.weight loss, dietary changes and check A1c Generalized anxiety disorder. Stable on Celexa. She does not see a therapist or counselor Multiple sclerosis. She follows up with neurologist and currently on biologic's. she is also on Neurontin for neuropathic pain. She needs help with activities of daily living and she has [employer] for 35 hours a week. Screening blood work before next appointment. General health concerns discussed with patient. Scribe services used to formulate this note under HIPAA compliance and under [place] law mandated for scribe services. Patient aware of service. Verbal consent and written consent taken from the patient. Patient understands and verbalizes understanding of the scribes services and all questions answered regarding scribes services. Patient agrees to use of scribes services. 08/16/2024 Mixed hyperlipidemia (ICD-10 - E78.2) Miriam is 39 years old lady with MS, migraine headaches, generalized anxiety disorder, anemia, vitamin D deficiency, polyneuropathy, insomnia is here for medical weight management. She Gained 3 pounds since last visit. She has been noncompliant with the diet and the medication. Plan is as follows Hyperlipidemia. Cholesterol panel is within reasonable limits. Dietary recommendations. Food recall was done today and patient advised to be on low calorie, low carbohydrate diet. Restrict calories to less than 1500 kcal in 24 hours. Low glycemic index foods and encouraged. Meal replacements were recommended. Advised to use nize-zam-ldsbkap multivitamins and vitamin D. Advised to use calorie counter and adhere to portion control. Monthly goal is to lose 4-6 pounds Pharmacotherapy. Continue on phentermine 30 mg and will titrate up as tolerated Side effects explained to the patient. Goal is to lose 3-5% of body weight in 3 months. She has multiple comorbidities like MS and she walks with a walker, hyperlipidemia, impaired fasting glucose and she is struggling to lose weight on conventional medications like phentermine. Awaiting Zepbound approval. She will benefit from wegovy or zepbound and decreased risk of cardiovascular disease, strokes, cancers in future. We will send prescription for Zepbound and meanwhile she will continue on phentermine and once she receives Zepbound she will stop phentermine. Exercise. Patient encouraged to increase frequency, intensity and duration of exercise. Encouraged to burn at least 250-500 kcal in one session. Also encouraged to do weight training Assess. Different risk factors discussed with the patient and addressed Advise. Patient was given clear And specific advise that she will comply with Low-calorie diet and try not to exceed more than 1300 kcal in 24 hours. Agree. Mutually agreed to work together to achieve appropriate goals Assist. Motivational interviewing done. Arrange. Follow-up appointment arranged. Counseling. 15 minutes spent Face to face with the patient more than 50% of time was spent counseling Food sensitivity causing diarrhea - I have informed patient that leafy greens are usually high in fibers thus it causes diarrhea. We will also defer to GI for further eval. I have rendered the services for this patient under direct supervision of Dr. Law, who did not see the patient but was available upon request 07/17/2024 Mixed hyperlipidemia (ICD-10 - E78.2) Miriam is 38 years old lady with MS, migraine headaches, generalized anxiety disorder, anemia, vitamin D deficiency, polyneuropathy, insomnia is here for medical weight management. She lost 8 pounds since last visit. Plan is as follows Hyperlipidemia. Cholesterol panel is within reasonable limits. Dietary recommendations. Food recall was done today and patient advised to be on low calorie, low carbohydrate diet. Restrict calories to less than 1500 kcal in 24 hours. Low glycemic index foods and encouraged. Meal replacements were recommended. Advised to use zape-smq-rkhikoj multivitamins and vitamin D. Advised to use calorie counter and adhere to portion control. Monthly goal is to lose 4-6 pounds Pharmacotherapy. increase phentermine 30 mg and will titrate up as tolerated Side effects explained to the patient. Goal is to lose 3-5% of body weight in 3 months. She has multiple comorbidities like MS and she walks with a walker, hyperlipidemia, impaired fasting glucose and she is struggling to lose weight on conventional medications like phentermine. She will benefit from wegovy or zepbound and decreased risk of cardiovascular disease, strokes, cancers in future. We will send prescription for Zepbound and meanwhile she will continue on phentermine and once she receives Zepbound she will stop phentermine. Exercise. Patient encouraged to increase frequency, intensity and duration of exercise. Encouraged to burn at least 250-500 kcal in one session. Also encouraged to do weight training Assess. Different risk factors discussed with the patient and addressed Advise. Patient was given clear And specific advise that she will comply with Low-calorie diet and try not to exceed more than 1300 kcal in 24 hours. Agree. Mutually agreed to work together to achieve appropriate goals Assist. Motivational interviewing done. Arrange. Follow-up appointment arranged. Counseling. 15 minutes spent Face to face with the patient more than 50% of time was spent counseling 06/24/2024 Mixed hyperlipidemia (ICD-10 - E78.2) Miriam is 38 years old lady with MS, migraine headaches, generalized anxiety disorder, anemia, vitamin D deficiency, polyneuropathy, insomnia is here for medical weight management. She gained 4 pounds since last visit. Plan is as follows Hyperlipidemia. Cholesterol panel is within reasonable limits. Dietary recommendations. Food recall was done today and patient advised to be on low calorie, low carbohydrate diet. Restrict calories to less than 1500 kcal in 24 hours. Low glycemic index foods and encouraged. Meal replacements were recommended. Advised to use xgdn-ggn-dszhebz multivitamins and vitamin D. Advised to use calorie counter and adhere to portion control. Monthly goal is to lose 4-6 pounds Pharmacotherapy. increase phentermine 30 mg and will titrate up as tolerated Side effects explained to the patient. Goal is to lose 3-5% of body weight in 3 months. She has multiple comorbidities like MS and she walks with a walker, hyperlipidemia, impaired fasting glucose and she is struggling to lose weight on conventional medications like phentermine. She will benefit from wegovy or zepbound and decreased risk of cardiovascular disease, strokes, cancers in future. We will send prescription for Zepbound and meanwhile she will continue on phentermine and once she receives Zepbound she will stop phentermine. Exercise. Patient encouraged to increase frequency, intensity and duration of exercise. Encouraged to burn at least 250-500 kcal in one session. Also encouraged to do weight training Assess. Different risk factors discussed with the patient and addressed Advise. Patient was given clear And specific advise that she will comply with Low-calorie diet and try not to exceed more than 1300 kcal in 24 hours. Agree. Mutually agreed to work together to achieve appropriate goals Assist. Motivational interviewing done. Arrange. Follow-up appointment arranged. Counseling. 20 minutes spent Face to face with the patient more than 50% of time was spent counseling the hemoglobin A1c is normal. Screening blood work reviewed. 05/24/2024 Mixed hyperlipidemia (ICD-10 - E78.2) Miriam is 38 years old lady with MS, migraine headaches, generalized anxiety disorder, anemia, vitamin D deficiency, polyneuropathy, insomnia is here for medical weight management. She also had blood work done which is not complete. Plan is as follows Hyperlipidemia. Cholesterol panel is within reasonable limits. Dietary recommendations. Food recall was done today and patient advised to be on low calorie, low carbohydrate diet. Restrict calories to less than 1500 kcal in 24 hours. Low glycemic index foods and encouraged. Meal replacements were recommended. Advised to use ssnz-ecv-kqtgjst multivitamins and vitamin D. Advised to use calorie counter and adhere to portion control. Monthly goal is to lose 4-6 pounds Pharmacotherapy. started on phentermine 15 mg and will titrate up as tolerated Side effects explained to the patient. Goal is to lose 3-5% of body weight in 3 months. Exercise. Patient encouraged to increase frequency, intensity and duration of exercise. Encouraged to burn at least 250-500 kcal in one session. Also encouraged to do weight training Assess. Different risk factors discussed with the patient and addressed Advise. Patient was given clear And specific advise that she will comply with Low-calorie diet and try not to exceed more than 1300 kcal in 24 hours. Agree. Mutually agreed to work together to achieve appropriate goals Assist. Motivational interviewing done. Arrange. Follow-up appointment arranged. Counseling. 20 minutes spent Face to face with the patient more than 50% of time was spent counseling the hemoglobin A1c is normal. Screening blood work reviewed. 08/16/2024 Allergy to other foods (ICD-10 - Z91.018) Miriam is 39 years old lady with MS, migraine headaches, generalized anxiety disorder, anemia, vitamin D deficiency, polyneuropathy, insomnia is here for medical weight management. She Gained 3 pounds since last visit. She has been noncompliant with the diet and the medication. Plan is as follows Hyperlipidemia. Cholesterol panel is within reasonable limits. Dietary recommendations. Food recall was done today and patient advised to be on low calorie, low carbohydrate diet. Restrict calories to less than 1500 kcal in 24 hours. Low glycemic index foods and encouraged. Meal replacements were recommended. Advised to use xyle-pre-yfjngju multivitamins and vitamin D. Advised to use calorie counter and adhere to portion control. Monthly goal is to lose 4-6 pounds Pharmacotherapy. Continue on phentermine 30 mg and will titrate up as tolerated Side effects explained to the patient. Goal is to lose 3-5% of body weight in 3 months. She has multiple comorbidities like MS and she walks with a walker, hyperlipidemia, impaired fasting glucose and she is struggling to lose weight on conventional medications like phentermine. Awaiting Zepbound approval. She will benefit from wegovy or zepbound and decreased risk of cardiovascular disease, strokes, cancers in future. We will send prescription for Zepbound and meanwhile she will continue on phentermine and once she receives Zepbound she will stop phentermine. Exercise. Patient encouraged to increase frequency, intensity and duration of exercise. Encouraged to burn at least 250-500 kcal in one session. Also encouraged to do weight training Assess. Different risk factors discussed with the patient and addressed Advise. Patient was given clear And specific advise that she will comply with Low-calorie diet and try not to exceed more than 1300 kcal in 24 hours. Agree. Mutually agreed to work together to achieve appropriate goals Assist. Motivational interviewing done. Arrange. Follow-up appointment arranged. Counseling. 15 minutes spent Face to face with the patient more than 50% of time was spent counseling Food sensitivity causing diarrhea - I have informed patient that leafy greens are usually high in fibers thus it causes diarrhea. We will also defer to GI for further eval. I have rendered the services for this patient under direct supervision of Dr. Law, who did not see the patient but was available upon request 04/26/2024 Mixed hyperlipidemia (ICD-10 - E78.2) Ms Suh is a 37 year old lady here today for medical weight management. We saw her in March 2023. She gained 14 lbs since last visit. it is multifactorial and is because of sedentary lifestyle high calorie diet and medication induced. She was bedridden and was on a wheelchair d/t recent right ribia fracture and she uses a cane to walk at this point. Plan is as follows: Dietary recommendations. Food recall was done today and patient advised to be on low calorie, low carbohydrate diet. Restrict calories to less than 1500 kcal in 24 hours. Low glycemic index foods and encouraged. Meal replacements were recommended. Advised to use cjda-ohm-oewwzaj multivitamins and vitamin D. Advised to use calorie counter and adhere to portion control. Monthly goal is to lose 4-6 pounds Pharmacotherapy. she is not on phentermine and continue Topamax 100 MG once a day. Side effects explained to the patient.. She is interested in GLP-1 and she does not have any contraindication but her insurance will not cover. Exercise. Patient encouraged to increase frequency, intensity and duration of exercise. Encouraged to burn at least 250-500 kcal in one session. Also encouraged to do weight training Assess. Different risk factors discussed with the patient and addressed Advise. Patient was given clear And specific advise that she will comply with Low-calorie diet and try not to exceed more than 1300 kcal in 24 hours. Agree. Mutually agreed to work together to achieve appropriate goals Assist. Motivational interviewing done. Arrange. Follow-up appointment arranged. Counseling. 15 minutes spent Face to face with the patient more than 50% of time was spent counseling Pedal edema. Keep legs elevated and she can also use compression stockings. IFG.weight loss, dietary changes and check A1c Generalized anxiety disorder. Stable on Celexa. She does not see a therapist or counselor Multiple sclerosis. She follows up with neurologist and currently on biologic's. she is also on Neurontin for neuropathic pain. She needs help with activities of daily living and she has [employer] for 35 hours a week. Screening blood work before next appointment. General health concerns discussed with patient. Scribe services used to formulate this note under HIPAA compliance and under [place] law mandated for scribe services. Patient aware of service. Verbal consent and written consent taken from the patient. Patient understands and verbalizes understanding of the scribes services and all questions answered regarding scribes services. Patient agrees to use of scribes services. 04/26/2024 Generalized anxiety disorder (ICD-10 - F41.1) Ms Suh is a 37 year old lady here today for medical weight management. We saw her in March 2023. She gained 14 lbs since last visit. it is multifactorial and is because of sedentary lifestyle high calorie diet and medication induced. She was bedridden and was on a wheelchair d/t recent right ribia fracture and she uses a cane to walk at this point. Plan is as follows: Dietary recommendations. Food recall was done today and patient advised to be on low calorie, low carbohydrate diet. Restrict calories to less than 1500 kcal in 24 hours. Low glycemic index foods and encouraged. Meal replacements were recommended. Advised to use woiw-zvf-icearlq multivitamins and vitamin D. Advised to use calorie counter and adhere to portion control. Monthly goal is to lose 4-6 pounds Pharmacotherapy. she is not on phentermine and continue Topamax 100 MG once a day. Side effects explained to the patient.. She is interested in GLP-1 and she does not have any contraindication but her insurance will not cover. Exercise. Patient encouraged to increase frequency, intensity and duration of exercise. Encouraged to burn at least 250-500 kcal in one session. Also encouraged to do weight training Assess. Different risk factors discussed with the patient and addressed Advise. Patient was given clear And specific advise that she will comply with Low-calorie diet and try not to exceed more than 1300 kcal in 24 hours. Agree. Mutually agreed to work together to achieve appropriate goals Assist. Motivational interviewing done. Arrange. Follow-up appointment arranged. Counseling. 15 minutes spent Face to face with the patient more than 50% of time was spent counseling Pedal edema. Keep legs elevated and she can also use compression stockings. IFG.weight loss, dietary changes and check A1c Generalized anxiety disorder. Stable on Celexa. She does not see a therapist or counselor Multiple sclerosis. She follows up with neurologist and currently on biologic's. she is also on Neurontin for neuropathic pain. She needs help with activities of daily living and she has [employer] for 35 hours a week. Screening blood work before next appointment. General health concerns discussed with patient. Scribe services used to formulate this note under HIPAA compliance and under [place] law mandated for scribe services. Patient aware of service. Verbal consent and written consent taken from the patient. Patient understands and verbalizes understanding of the scribes services and all questions answered regarding scribes services. Patient agrees to use of scribes services. 04/26/2024 Multiple sclerosis (ICD-10 - G35) Ms Suh is a 37 year old lady here today for medical weight management. We saw her in March 2023. She gained 14 lbs since last visit. it is multifactorial and is because of sedentary lifestyle high calorie diet and medication induced. She was bedridden and was on a wheelchair d/t recent right ribia fracture and she uses a cane to walk at this point. Plan is as follows: Dietary recommendations. Food recall was done today and patient advised to be on low calorie, low carbohydrate diet. Restrict calories to less than 1500 kcal in 24 hours. Low glycemic index foods and encouraged. Meal replacements were recommended. Advised to use cojm-ktg-bokbvqa multivitamins and vitamin D. Advised to use calorie counter and adhere to portion control. Monthly goal is to lose 4-6 pounds Pharmacotherapy. she is not on phentermine and continue Topamax 100 MG once a day. Side effects explained to the patient.. She is interested in GLP-1 and she does not have any contraindication but her insurance will not cover. Exercise. Patient encouraged to increase frequency, intensity and duration of exercise. Encouraged to burn at least 250-500 kcal in one session. Also encouraged to do weight training Assess. Different risk factors discussed with the patient and addressed Advise. Patient was given clear And specific advise that she will comply with Low-calorie diet and try not to exceed more than 1300 kcal in 24 hours. Agree. Mutually agreed to work together to achieve appropriate goals Assist. Motivational interviewing done. Arrange. Follow-up appointment arranged. Counseling. 15 minutes spent Face to face with the patient more than 50% of time was spent counseling Pedal edema. Keep legs elevated and she can also use compression stockings. IFG.weight loss, dietary changes and check A1c Generalized anxiety disorder. Stable on Celexa. She does not see a therapist or counselor Multiple sclerosis. She follows up with neurologist and currently on biologic's. she is also on Neurontin for neuropathic pain. She needs help with activities of daily living and she has [employer] for 35 hours a week. Screening blood work before next appointment. General health concerns discussed with patient. Scribe services used to formulate this note under HIPAA compliance and under [place] law mandated for scribe services. Patient aware of service. Verbal consent and written consent taken from the patient. Patient understands and verbalizes understanding of the scribes services and all questions answered regarding scribes services. Patient agrees to use of scribes services. 04/26/2024 Vitamin D deficiency, unspecified (ICD-10 - E55.9) Ms Suh is a 37 year old lady here today for medical weight management. We saw her in March 2023. She gained 14 lbs since last visit. it is multifactorial and is because of sedentary lifestyle high calorie diet and medication induced. She was bedridden and was on a wheelchair d/t recent right ribia fracture and she uses a cane to walk at this point. Plan is as follows: Dietary recommendations. Food recall was done today and patient advised to be on low calorie, low carbohydrate diet. Restrict calories to less than 1500 kcal in 24 hours. Low glycemic index foods and encouraged. Meal replacements were recommended. Advised to use [id number] multivitamins and vitamin D. Advised to use calorie counter and adhere to portion control. Monthly goal is to lose 4-6 pounds Pharmacotherapy. she is not on phentermine and continue Topamax 100 MG once a day. Side effects explained to the patient.. She is interested in GLP-1 and she does not have any contraindication but her insurance will not cover. Exercise. Patient encouraged to increase frequency, intensity and duration of exercise. Encouraged to burn at least 250-500 kcal in one session. Also encouraged to do weight training Assess. Different risk factors discussed with the patient and addressed Advise. Patient was given clear And specific advise that she will comply with Low-calorie diet and try not to exceed more than 1300 kcal in 24 hours. Agree. Mutually agreed to work together to achieve appropriate goals Assist. Motivational interviewing done. Arrange. Follow-up appointment arranged. Counseling. 15 minutes spent Face to face with the patient more than 50% of time was spent counseling Pedal edema. Keep legs elevated and she can also use compression stockings. IFG.weight loss, dietary changes and check A1c Generalized anxiety disorder. Stable on Celexa. She does not see a therapist or counselor Multiple sclerosis. She follows up with neurologist and currently on biologic's. she is also on Neurontin for neuropathic pain. She needs help with activities of daily living and she has [employer] for 35 hours a week. Screening blood work before next appointment. General health concerns discussed with patient. Scribe services used to formulate this note under HIPAA compliance and under [place] law mandated for scribe services. Patient aware of service. Verbal consent and written consent taken from the patient. Patient understands and verbalizes understanding of the scribes services and all questions answered regarding scribes services. Patient agrees to use of scribes services. Plan Of Treatment Future Test Test Name Order Date GLUCOSE 01/09/2023 HEMOGLOBIN A1C WITH EST GLUCOSE 01/10/20 23 LIPID PANEL 01/09/2023 TSH 01/09/2023 Next Appt Details Provider Name:WEST LAW , 02/12/2025 10:45:00 AM, [address] [place] [address] [address], [place], [address], Insurance Providers Payer Name Payer Address Payer Phone Subscriber Number Group Number Insured Name Patient Relationship to Insured Coverage Start Date Coverage End Date Medicare [address] [place] [id number] Miriam Galindo Self - patient is the insured 9 Medicaid of [place] tts [address] [place] [address] [id number] Rivka Miriam leonardo Self - patient is the insured 9 Medical (General) History Medical History History ICD Code Vestibular migraine headaches [place] and goes to [facility] Anxiety disorder anemia Neuropathy Vitamin D Def DVT left leg Personal history of COVID-19 Snoring, negative sleep study Surgical History Surgery Date(Month/Year) cholecystectomy 2010 section Hospitalization History Reason Date(Month/Year)
--- OUTSIDE RECORDS SUMMARY | 2025-02-04 10:47 | XMS_ITS | Encounter Summary ---
Author Organization [facility] Address [address] [place] [address] Phone Care Team Providers Care Renewal Specialist Name Role Phone Man Arteaga MD Primary Care Provider [phone] Encounter Details Date Type Department Care Team (Late st Contact Info) Description 12/19/2024 Procedure [place] [facility] [place] [address] [place] [address], Floor [address] [place] [address] Social History Tobacco Use Types Packs/Day Years Used Date Smoking Tobacco: Never Smokeless Tobacco: Never Alcohol Use Standard Drinks/Week Comments Not Currently 0 (1 standard drink = 0.6 oz pur e alcohol) Education Answer Date Recorded Are you interested in more education? Not on natali e 12/19/2024 Are you concerned about learning? Not on file 12/19/2024 No 12/19/2024 No 12/19/2024 Food Answer Date Recorded Within the past 6 months we worried whether our food would run out before we got money to buy more. Never True 12/19/2024 Within the past 6 months the food we bought just didn't last and we didn't have enough money to get more. Never True Residential Stability Answer Date Recor ded What is your housing situation today? I have luiz sing 12/19/2024 How many times have you move d in the past 12 months? Zero (I did not move) 12/19/2024 Paying for Meds Answer Date Recorded Do you have trouble paying for medicines? No 12/19/2024 Paying Utility Bills Answer Date Record ed Do you have trouble paying your heating or elect ricity bill? No 12/19/2024 Transportation Answer Date Recorded Has the lack of transportati on kept you from medical appointments or from getting medications? No 12/19/2024 Digital Access Answer Date Recorded No 12/19/2024 Yes 12/19/2024 Do you have reliable internet access at home? Ye s 12/19/2024 Do you have a device (e.g., phone, tablet, computer) with a working camera? Yes 12/19/2024 Intimate Partner Violence Answer Date R ecorded Are you denied basic needs s uch as food, clothing, or medical care? No 12/19/2024 In the past 12 months have y ou been in a relationship with a person who hurts, threatens, or tries to control you? No 12/19/2024 Are you denied basic needs s uch as food, clothing, or medical care? No 12/19/2024 In the past 12 months have y ou been in a relationship with a person who hurts, threatens, or tries to control you? No 12/19/2024 Comments Unknown Sex and Gender Information Value Date Recorded Sex Assigned at Not on file Legal Sex Female 11:49 AM EDT Gender Identity Not on file Sexual Orientation Not on file documented as of this encounter Functional Status * Calculated C-SSRS Risk Score (Lifetime/Recent) Answer Date of Assessment Author No Risk Indicated 12/19/2024 12:45 PM EDT Gema Burger RN * [place] Suicide Severity Rating Scale (Screener/Recent Self-Report) Question Answer Date of Assessment Author 1. Wish to be (Past 1 Month) No 12/19/2024 12:45 PM EDT Gema Vasquez Ma, RN 2. Non-Specific Active Suicidal Thoughts (Past 1 Month) No 12/19/2024 12:45 PM EDT Gema Vasquez Ma, RN 6. Suicidal Behavior (Lifetime) No 12/19/2024 12:45 PM SUSANT Gema Vasquez Ma, RN documented as of this encounter Plan of Treatment Not on file documented as of this encounter Visit Diagnoses Not on filedocumented in this encounter Care Teams Renewal Specialist Relationship Specialty Start Date End Date Jenni, Man F, MD [address] [place] [address] PCP - General Internal Medicine 12/19/24 documented as of this encounter Additional Source Comments The information contained in this document represents components of the legal health record. It is not the complete legal health record.[facility]
--- OUTSIDE RECORDS SUMMARY | 2025-02-04 10:47 | XMS_ITS | Clinical Summary ---
Author Organization [facility] Address [address] [place] [address] Phone Care Team Providers Care Gardening Supervisor Name Role Phone Man Arteaga MD Primary Care Provider [phone] Allergies Active Allergy Reactions Criticality Noted Date Comments Adhesive Tape-Silicones 11/05/2019 Amoxicillin Rash Low 05/24/2021 Latex 08/07/2022 Natalizumab 09/02/2019 Other reaction(s): Other (See Comments) Penicillins 08/07/2022 Medications albuterol HFA (PROAIR HFA ; PROVENTIL HFA ; VENTOLIN HFA) 90 mcg/actuation inhaler ProAir HFA 90 mcg/actuation aerosol inhaler Active armodafiniL (NUVIGIL) 150 mg tablet Take 1 tablet (150 mg total) by mouth. 2 Active ergocalciferol (VITAMIN D-2) 1,250 mcg (50,000 unit) capsule Take 1 capsule (50,000 Units total) by mouth 1 (one) time per week. 2 Active ocrelizumab (OCREVUS) 30 mg/mL solution injection Infuse into a venous catheter. Active oxyCODONE-acet aminophen (PERCOCET) 5-325 mg per tablet 1 TABLET BY MOUTH EVERY 6 HOURS, SEVERE NEEDED FOR PAIN 0 Active phentermine 15 mg capsule Take 1 capsule (15 mg total) by mouth. Active SUMAtriptan (IMITREX) 100 mg tablet 1 po qd PRN migraine 2 Active topiramate (TOPAMAX) 25 mg tablet Take 1 tablet (25 mg total) by mouth. 2 Active Gemtesa 75 mg tablet tablet Take 1 tablet (75 mg total) by mouth 1 (one) time each day. 4 Active desvenlafaxine succinate (PRISTIQ) 25 mg 24 hr tablet TAKE 1 TABLET BY MOUTH DAILY. DO NOT CRUSH/CHEW. BEGIN TAKING AFTER FULLY TAPERING OFF CITALOPRAM. 4 Active gabapentin (NEURONTIN) 600 mg tablet Take 1 tablet (600 mg total) by mouth 2 (two) times a day. 60 tablet 3 5 Active buPROPion XL (WELLBUTRIN XL) 150 mg 24 hr tablet Take 1 tablet (150 mg total) by mouth 1 (one) time each day. before breakfast Active cholecalcifero l (VITAMIN D-3) 25 mcg (1,000 unit) tablet 1 tablet (1,000 Units total) 1 (one) time each day at the same time. Active folic acid (FOLVITE) 1 mg tablet Take 1 tablet (1,000 mcg total) by mouth 1 (one) time each day. 5 Active tirzepatide, weight loss, (Zepbound) 2.5 mg/0.5 mL solution 0.5 mL. Active fluconazole (DIFLUCAN) 150 mg tablet TAKE 1 TABLET (ORAL) DAILY FOR 1 DAYS TAKE NEEDED FOR SYMPTOMS OF A YEAST INFECTION. Active methylPREDNISo lone (Medrol, Dane,) 4 mg tablet Follow schedule on package instructions 21 tablet 5 01/28/20 25 Active Problems Problem Noted Date Diagnosed Date Multiple sclerosis ([facility] V24, [facility] V28) Anxiety 10/17/2019 Asthma 10/17/2019 Cervical myelopathy ([facility] V24, [facility] V28) 0 10/17/2019 Migraine without aura 10/17/2019 Optic neuritis 10/17/2019 Spasticity 10/17/2019 Urinary frequency 10/17/2019 Encounters Date Type Department Care Team Description 02/03/2025 Lab Requisition [facility] - Main Lab [address] [facility] [place] [address] Jeff Niño PA Urinary tract infection, site not specified 01/29/2025 7:53 AM EDT - 01/29/2025 11:59 PM EDT Hospital Encounter [facility] [place] [facility] - [place] [address] [facility] [address] [place] [address] Multiple sclerosis ([facility] V24, [facility] V28) (Primary Dx) Discharge Disposition: Home or Self Care 01/28/[address] [phone] Verónica Mckeon LCSW Multiple Sclerosis (/) 01/21/2025 Telephone [facility] [address] [facility] [address] [place] [address] Zina Rizo PA 12/16/2024 9:00 AM EDT Office Visit [facility] [address] [facility] [address] [place] [address] Zina Rizo PA Sinusitis, unspecified chronicity, unspecified location (Primary Dx) from Last 3 Months Surgical History Surgery Date Site/Laterality Comments GALLBLADDER SURGERY PROCEDURE:GALLBLADDER SURGERY SECTION PROCEDURE: SECTION;COMMENT:twice Medical History Medical History Date Comments Anxiety DX:Anxiety Asthma DX:Asthma Gait instability DX:Gait instabi lity Headache, migraine DX:Headache, migraine;COMMENT:With and Without Aura Multiple sclerosis ([facility] V24, [facility] V28) DX:Multiple sclerosis (HCC) Cervical myelopathy ([facility] V24, [facility] V28) DX:Cervical myelopathy (HCC) Vitamin D deficiency DX:Vitamin D deficiency Family History Medical History Relation Name Comments Multiple sclerosis Father's Sister 1 Multiple sclerosis Father's Sister 2 Cancer Maternal Grandmother Heart disease Maternal Grandmother Stroke Maternal Grandmother Heart disease Paternal Grandfather Relation Name Status Comments Father's Sister 1 Father's Sister 2 Maternal Grandmother Paternal Grandfather Social History Tobacco Use Types Packs/Day Years Used Date Smoking Tobacco: Every Day Smokeless Tobacco: Never Tobacco Cessation:Ready to Q uit: Not Asked; Counseling Given: Not Answered Alcohol Use Standard Drinks/Week Comments Yes 0 (1 standard drink = 0.6 oz pur e alcohol) Comments Unknown Sex and Gender Information Value Date Recorded Sex Assigned at Not on file Legal Sex Female 10:21 PM EST Gender Identity Not on file Sexual Orientation Not on file Obstetrics History Last Filed Vital Signs Vital Sign Reading Time Taken Comments Blood Pressure 100/67 01/29/2025 11:06 AM EDT Pulse 70 01/29/2025 11:06 AM EDT Temperature 36.2 C (97.2 F) 01/29/2025 11:06 AM EDT Respiratory Rate 18 01/29/2025 11:06 AM EDT Oxygen Saturation 93% 01/29/2025 11:06 AM EDT Inhaled Oxygen Concentration - - Weight 122 kg (269 lb) 04/22/2024 10:16 AM EDT Height 162.6 cm (5' 4 ) 04/22/2024 10:16 AM EDT Body Mass Index 46.17 04/22/2024 10:16 AM EDT Plan of Treatment Upcoming Encounters Date Type Department Care Team (Late st Contact Info) Description 03/20/2025 2:30 PM EDT Office Visit [facility] [place] [facility] [place] [address] [phone] Zina Rizo PA [address] [facility] [address] [place] [address] 07/07/2025 8:00 AM EST Appointment [facility] - [place] [address] [phone] Health Maintenance Due Date Last Done Comments Breast Cancer Screening 1984 DTaP,Tdap,and Td Vaccines (1 - Tdap) 2003 Hepatitis B Vaccines (1 of 3 - 19+ 3-dose series) 2003 Cervical Cancer Screening: Pap Smear 2005 Pneumococcal Vaccine: Pediatrics (0 to 5 Years) and At-Risk Patients (6 to 49 Years) (2 of 2 - PCV) 03/09/2019 03/09/2018 HIV Screening 06/09/2022 Hepatitis C Screening 06/09/2022 Social Influencers of Health Screening 06/09/2022 Medicare Annual Wellness Visit 05/17/2023 05/17/2022 COVID-19 Vaccine ( season) 2024 Depression Screening 07/03/2024 Influenza Vaccine (#1) 2025 , 06/05/2023, 04/29/2021, Additional history exists Cholesterol Screening (Lipid Panel) 12/19/2029 12/19/2024 Meningococcal ACWY Vaccine Aged Out 12/24/2010 N o longer eligible based on patient's age to complete this topic HIB Vaccines Aged Out No longer eligi ble based on patient's age to complete this topic HPV Vaccines Aged Out No longer eligi ble based on patient's age to complete this topic Hepatitis A Vaccines Aged Out No long er eligible based on patient's age to complete this topic IPV Vaccines Aged Out No longer eligi ble based on patient's age to complete this topic MMR Vaccines Aged Out No longer eligi ble based on patient's age to complete this topic Meningococcal B Vaccine Aged Out No l onger eligible based on patient's age to complete this topic RSV Immunization Patients Under 20 months Aged Out No longer eligible based on patient's age to complete this topic Varicella Vaccines Aged Out No longer eligible based on patient's age to complete this topic Goals Goal Patient Goal Type Associated Problems Recent Progress Patient-Stated? Author Pt goals General Yes Robbie Veronica, OT Note: To be able to reach up to wash my hair, to be able to stand for cooking Procedures Procedure Name Priority Date/Time Associated Diagnosis Comments CULTURE URINE Routine 02/03/2025 12:00 PM EDT Urinary tract infection, site not specified CBC WITH AUTO DIFFERENTIAL Routine 01/29/2025 8:10 AM EDT Multiple sclerosis (CMS/HCC V24, CMS/HCC V28) HEPATIC FUNCTION PANEL Routine 01/29/2025 8:10 AM EDT Multiple sclerosis (CMS/HCC V24, CMS/HCC V28) CBC AND DIFFERENTIAL Routine 01/29/2025 8:10 AM EDT Multiple sclerosis (CMS/HCC V24, CMS/HCC V28) CREATININE, SERUM Routine 01/29/2025 8:1 0 AM EDT Multiple sclerosis ([facility] V24, [facility] V28) BUN Routine 01/29/2025 8:10 AM EDT Multiple sclerosis ([facility] V24, [facility] V28) from Last 3 Months Results * Culture urine (02/03/2025 12:00 PM EDT) [facility] Culture, Urine 10,000-49,000 CFU/mL Mixed urogenital bella, no uropathogens present. Suggest repeat specimen if clinically indicated. 02/04/2025 8:51 AM EDT [facility] Urine Urine specimen obtained by clean catch procedure / Unknown 02/03/2025 12:00 PM EDT 02/03/2025 1:35 PM EDT us Jeff [facility]ARE LAB MICROBIOLOGY - GENERAL ORD ERABLES Final Result [facility] [address] [place] [address], * (ABNORMAL) CBC auto differential (01/29/2025 8:10 AM EDT) [facility] WBC 11.4(H) 4.8 - 10.8 K/mcL LAB HEMETOLOGY METHOD 01/29/2025 10:40 AM EDT [facility] RBC 5.10(H) 3.80 - 4.80 M/mcL LAB HEMETOLOGY METHOD 01/29/2025 10:40 AM EDT [facility] Hemoglobin 14.3 11.5 - 16.0 g/dL LAB HEMETOLOGY METHOD 01/29/2025 10:40 AM T [facility] Hematocrit 45.9 35.0 - 47.0 % LAB HEMETOLOGY METHOD 01/29/2025 10:40 AM EDT [facility] MCV 89.8 79.0 - 98.0 FL LAB HEMETOLOGY METHOD 01/29/2025 10:40 AM [facility] MCH 28.0 27.0 - 32.0 pcg LAB HEMETOLOGY METHOD 01/29/2025 10:40 AM [facility] MCHC 31.2(L) 32.0 - 37.0 g/dL LAB HEMETOLOGY METHOD 01/29/2025 10:40 AM [facility] RDW 13.8 11.0 - 15.0 % LAB HEMETOLOGY METHOD 01/29/2025 10:40 AM [facility] Platelets 394 130 - 400 K/mcL LAB HEMETOLOGY METHOD 01/29/2025 10:40 AM [facility] MPV 10.2 7.0 - 11.0 FL LAB HEMETOLOGY METHOD 01/29/2025 10:40 AM [facility] NRBC 0.0 <1.0 % LAB HEMETOLOGY METHOD 01/29/2025 10:40 AM [facility] NRBC Absolute 0.00 <0.10 K/mcL LAB HEMETOLOGY METHOD 01/29/2025 10:40 AM [facility] Neutrophils Relative 81.0 % LAB HEMETOLOGY METHOD 01/29/2025 10:40 AM [facility] Lymphocytes Relative 10.7 % LAB HEMETOLOGY METHOD 01/29/2025 10:40 AM [facility] Monocytes Relative 6.5 % LAB HEMETOLOGY METHOD 01/29/2025 10:40 AM [facility] Eosinophils Relative 1.1 % LAB HEMETOLOGY METHOD 01/29/2025 10:40 AM [facility] Basophils Relative 0.3 % LAB HEMETOLOGY METHOD 01/29/2025 10:40 AM [facility] Immature Granulocytes Relative 0.4 % LAB HEMETOLOGY METHOD 01/29/2025 10:40 AM EDT [facility] Neutrophils Absolute 9.18(H) 1.50 - 7.00 K/[facility] HEMETOLOGY METHOD 01/29/2025 10:40 AM EDT [facility] Lymphocytes Absolute 1.22 1.00 - 5.00 K/[facility] LAB HEMETOLOGY METHOD 01/29/2025 10:40 AM EDT [facility] Monocytes Absolute 0.74 0.20 - 1.00 K/[facility] HEMETOLOGY METHOD 01/29/2025 10:40 AM EDT [facility] Eosinophils Absolute 0.13 0.00 - 0.50 K/[facility] HEMETOLOGY METHOD 01/29/2025 10:40 AM EDT [facility] Basophils Absolute 0.03 0.00 - 0.20 K/[facility] LAB HEMETOLOGY METHOD 01/29/2025 10:40 AM EDT [facility] Immature Granulocytes Absolute 0.05(H) 0.00 - 0.03 K/[facility] HEMETOLOGY METHOD 01/29/2025 10:40 AM EDT [facility] Blood Venous blood specimen / Unknown Venipuncture / Unknown 01/29/2025 8:10 AM EDT 01/29/2025 8:10 AM EDT Zina WARE LAB BLOOD ORDERABLES Final R esult [facility] [address] [place] [address], * Creatinine (01/29/2025 8:10 AM EDT) Creatinine 0.86 0.50 - 1.10 mg/dL LAB CHEMISTRY METHOD 01/29/2025 10:43 AM EDT [facility] eGFR 88 >=60 mL/min/1. 73m2 LAB CHEMISTRY METHOD 01/29/2025 10:43 AM EDT [facility] Comment:Calculation based on the Chronic Kidney Disease Epidemiology Collaboration (CKD-EPI) equation refit without adjustment for race. Blood Venous blood specimen / Unknown Venipuncture / Unknown 01/29/2025 8:10 AM EDT 01/29/2025 8:10 AM EDT Zina [facility] LAB BLOOD ORDERABLES Final R esult Performing Organization Address City/[facility]/ZIP Co de Phone Number [facility] [address] [place] [address], [place] [phone] * BUN (01/29/2025 8:10 AM EDT) BUN 12 5 - 25 mg/dL LAB CHEMISTRY METHOD 01/29/2025 10:43 AM EDT [facility] Blood Venous blood specimen / Unknown Venipuncture / Unknown 01/29/2025 8:10 AM EDT 01/29/2025 8:10 AM EDT [facility] BLOOD ORDERABLES Final R esult Performing Organization Address City/[facility]/ZIP Co de Phone Number [facility] [address] [place] [address], [place] [phone] * Hepatic function panel (01/29/2025 8:10 AM EDT) Total Protein 6.3 6.0 - 8.0 g/dL LAB CHEMISTRY METHOD 01/29/2025 10:43 AM EDT [facility] Albumin 3.3 3.2 - 5.0 g/dL LAB CHEMISTRY METHOD 01/29/2025 10:43 AM EDT [facility] Total Bilirubin 0.5 0.0 - 1.4 mg/dL LAB CHEMISTRY METHOD 01/29/2025 10:43 AM EDT [facility] Bilirubin, Direct <0.1 0.0 - 0.3 mg/dL LAB CHEMISTRY METHOD 01/29/2025 10:43 AM EDT [facility] Bilirubin, Indirect LAB CHEMISTRY METHOD 01/29/2025 10:43 AM EDT [facility] Comment:Unable to calculate Indirect Bilirubin. ALT (SGPT) 25 10 - 60 unit/L LAB CHEMISTRY METHOD 01/29/2025 10:43 AM EDT [facility] AST (SGOT) 22 10 - 42 unit/L LAB CHEMISTRY METHOD 01/29/2025 10:43 AM EDT [facility] Alkaline Phosphatase 93 42 - 121 unit/L LAB CHEMISTRY METHOD 01/29/2025 10:43 AM EDT [facility] Blood Venous blood specimen / Unknown Venipuncture / Unknown 01/29/2025 8:10 AM EDT 01/29/2025 8:10 AM EDT Zina [facility] LAB BLOOD ORDERABLES Final R esult [facility] [address] [place] [address], [place] [phone] from Last 3 Months Insurance MEDICARE MEDICAID - [place] Care Teams Gardening Supervisor Relationship Specialty Start Date End Date Man Arteaga MD [address] [facility] [place] [phone] PCP - General Internal Medicine 11/01/19
--- OUTSIDE RECORDS SUMMARY | 2025-02-04 10:47 | XMS_ITS | Clinical Summary ---
Author Organization [facility] Address [address] [place] [id number] Care Team Providers Care Public Affairs Director Name Role Phone Man Arteaga MD Primary Care Provider Allergies Active Allergy Reactions Criticality Noted Date Comments Adhesive Tape 11/05/2019 Amoxicillin Rash Low 05/24/2021 Latex Natalizumab Other (See Comments) 09/02/2019 Penicillins 07/06/2022 Medications Medication Sig Dispensed Refills Start Date End Date Status ocrelizumab (OCREVUS) 300 MG/10ML SOLN Inject into the vein. 0 Active phentermine 15 MG capsule Take 1 capsule (15 mg total) by mouth every morning. 0 Active albuterol (PROAIR HFA) 108 (90 Base) MCG/ACT inhaler ProAir HFA 90 mcg/actuation aerosol inhaler 0 Active oxyCODONE-acetaminop hen (PERCOCET) 5-325 MG per tablet 1 TABLET BY MOUTH EVERY 6 HOURS, SEVERE NEEDED FOR PAIN 0 02/10/2020 Active Armodafinil 150 MG tablet Take 1 tablet (150 mg total) by mouth daily. 30 tablet 5 12/13/2021 Active ergocalciferol (VITAMIN D2) capsule 69198 units TAKE 1 CAPSULE BY MOUTH ONE TIME PER WEEK N/C BY INS 12 capsule 0 08/04/2022 Active citalopram (CeleXA) 40 MG tablet TAKE 1 TABLET BY MOUTH EVERY DAY 90 tablet 1 03/27/2023 Active gabapentin (NEURONTIN) 600 MG tablet Take 1 tablet (600 mg total) by mouth 2 (two) times a day. 60 tablet 5 05/08/2023 Active SUMAtriptan (IMITREX) 100 MG tablet TAKE 1 TABLET BY MOUTH EVERY DAY NEEDED FOR MIGRAINE 9 tablet 5 10/27/2023 Active topiramate (TOPAMAX) 25 MG tablet TAKE 1 TABLET BY MOUTH FOUR TIMES A DAY 360 tablet 1 04/14/2024 Active Active Problems Problem Noted Date Diagnosed Date Multiple sclerosis 01/12/2021 Spasticity 10/17/2019 Optic neuritis 10/17/2019 Urinary frequency 10/17/2019 Cervical myelopathy 10/17/2019 Migraine without aura 10/17/2019 Asthma 10/17/2019 Anxiety 10/17/2019 Family History Medical History Relation Name Comments Cancer Maternal Grandmother Heart disease Maternal Grandmother Stroke Maternal Grandmother Multiple sclerosis Paternal Aunt 1 Multiple sclerosis Paternal Aunt 2 Heart disease Paternal Grandfather Relation Name Status Comments Maternal Grandmother Paternal Aunt 1 Paternal Aunt 2 Paternal Grandfather Social History Tobacco Use Types Packs/Day Years Used Date Smoking Tobacco: Every Day Cigarettes Smokeless Tobacco: Never Tobacco Cessation:Ready to Q uit: Not Asked; Counseling Given: Not Answered Alcohol Use Standard Drinks/Week Comments Yes 0 (1 standard drink = 0.6 oz pur e alcohol) Sex and Gender Information Value Date Recorded Sex Assigned at Female 12/09/2021 3:55 PM EDT Gender Identity Not on file Sexual Orientation Not on file Job Start Date Occupation Industry Not on file Not on file Not on file Last Filed Vital Signs Vital Sign Reading Time Taken Comments Blood Pressure 97/66 04/22/2024 10:16 AM EDT Pulse 66 04/22/2024 10:16 AM EDT Temperature 36.1 C (97 F) 04/22/2024 10:16 AM EDT Respiratory Rate 16 03/29/2024 11:30 AM EDT Oxygen Saturation 95% 03/29/2024 11:30 AM EDT Inhaled Oxygen Concentration - - Weight 122 kg (269 lb) 04/22/2024 10:16 AM EDT Height 162.6 cm (5' 4 ) 04/22/2024 10:16 AM EDT Body Mass Index 46.17 04/22/2024 10:16 AM EDT Plan of Treatment Health Maintenance Due Date Last Done Comments Hepatitis B Vaccines (1 of 3 - 3-dose series) 1984 Hepatitis C Screening 1984 COVID-19 Vaccine (#1) 1984 Depression Screening 1996 BMI Counseling 2002 Preventative Health Evaluation 2002 Tobacco Cessation Counseling 2002 DTap / Tdap / Td (1 - Tdap) 2003 Cervical Cancer Screening (Pap Smear) 2005 Pneumococcal Vaccine (2 of 2 - PCV) 03/09/2019 03/09/2018 Influenza Vaccine (#1) 2025 3, 04/21/2021, 04/01/2020, Additional history exists RSV Ped < 20 months Aged Out No longe r eligible based on patient's age to complete this topic Care Teams Public Affairs Director Relationship Specialty Start Date End Date Man Arteaga MD [address] [id number] PCP - General Internal Medicine 11/01/19
--- OUTSIDE RECORDS SUMMARY | 2025-02-04 10:47 | XMS_ITS | Clinical Summary ---
Author Organization [facility] Address [address] [place] [address] Care Team Providers Care Support Manager Name Role Phone Unavailable Primary Care Provider Unavailabl e Social History Tobacco Use Types Packs/Day Years Used Date Smoking Tobacco: Never Assessed Comments Unknown Sex and Gender Information Value Date Recorded Sex Assigned at Not on file Legal Sex Female 10:43 AM EDT Gender Identity Not on file Sexual Orientation Not on file Plan of Treatment Upcoming Encounters Date Type Department Care Team (Late st Contact Info) Description 03/31/2025 1:00 PM EDT Procedure visit [facility] [address], [place] [phone] Rafael Odonnell MD [address] [place] [address] [id number] Juliette Mora Au.D [address] [place] [address] [phone] Health Maintenance Due Date Last Done Comments Hepatitis C Virus Screening 1984 HIV Screening 1997 DTaP/Tdap/Td Vaccines (1 - Tdap) 2003 Hepatitis B Vaccines (1 of 3 - 19+ 3-dose series) 2003 Pap Smear (Ages 21-65) 2005 COVID-19 Vaccine ( - 2023-2 5 season) 2024 Mammogram 2024 Influenza Vaccine 01/31/2025 HPV Vaccines Aged Out No longer eligi ble based on patient's age to complete this topic Pneumococcal Vaccine: Pediat reese (0-5 Years) and At-Risk Patients (6 to 49 Years) Aged Out No longer eligible b ased on patient's age to complete this topic Insurance MEDICARE PART A & B
--- OUTSIDE RECORDS SUMMARY | 2025-02-04 10:47 | XMS_ITS ---
Author Name [facility] Organization Unknown History of Medication Use Medication Directions Dispensed Refills Start Date End Date Stat folic acid (FOLVITE) 1 mg tablet Take 1 tablet (1,000 mcg total) by mouth 1 (one) time each day. 12/06/2024 active gabapentin (NEURONTIN) 600 mg tablet Take 1 tablet (600 mg total) by mouth 2 (two) times a day. 08/30/2024 active Gemtesa 75 mg tablet tablet Take 1 tablet (75 mg total) by mouth 1 (one) time each day. 05/24/2024 active desvenlafaxine succinate (PRISTIQ) 25 mg 24 hr tablet TAKE 1 TABLET BY MOUTH DAILY. DO NOT CRUSH/CHEW. BEGIN TAKING AFTER FULLY TAPERING OFF CITALOPRAM. 04/12/2024 active acetaminophen (TYLENOL) tablet 975 mg 975 mg, Oral, Once, On Mon03/29/24 at 0915, For 1 doseGive 30 minutes prior to ocrelizumab. 10/27/2023 4 completed methylPREDNISolone sodium succinate (SOLU-Medrol) injection 125 mg 125 mg, Intravenous, Once, On Mon03/29/24 at 0915, For 1 doseGive 30 minutes prior to ocrelizumab. Administer over 2-3 minutes 10/27/2023 4 completed SUMAtriptan (IMITREX) 100 MG tablet TAKE 1 TABLET BY MOUTH EVERY DAY NEEDED FOR MIGRAINE 10/27/2023 active gabapentin (NEURONTIN) 600 MG tablet Take 1 tablet (600 mg total) by mouth 2 (two) times a day. 05/08/2023 active gabapentin (NEURONTIN) 600 MG tablet Take 1 tablet (600 mg total) by mouth 2 (two) times a day. 05/08/2023 active topiramate (TOPAMAX) 25 MG tablet TAKE 1 TABLET BY MOUTH FOUR TIMES A DAY 05/05/2023 active citalopram (CeleXA) 40 MG tablet TAKE 1 TABLET BY MOUTH EVERY DAY 03/27/2023 active citalopram (CeleXA) 40 mg tablet Take 1 tablet (40 mg total) by mouth 1 (one) time each day. 06/05/2022 active ergocalciferol (VITAMIN D-2) 1,250 mcg (50,000 unit) capsule Take 1 capsule (50,000 Units total) by mouth 1 (one) time per week. 05/16/2022 active topiramate (TOPAMAX) 25 mg tablet Take 1 tablet (25 mg total) by mouth. 04/28/2022 active topiramate (TOPAMAX) 25 mg tablet Take 1 tablet (25 mg total) by mouth. 04/28/2022 active armodafiniL (NUVIGIL) 150 mg tablet Take 1 tablet (150 mg total) by mouth. 12/13/2021 active Armodafinil 150 MG tablet Take 1 tablet (150 mg total) by mouth daily. 12/13/2021 active SUMAtriptan (IMITREX) 100 mg tablet 1 po qd PRN migraine 10/28/2021 active SUMAtriptan (IMITREX) 100 mg tablet 1 po qd PRN migraine 10/28/2021 active oxyCODONE-acetaminophen (PERCOCET) 5-325 mg per tablet 1 TABLET BY MOUTH EVERY 6 HOURS, SEVERE NEEDED FOR PAIN 02/10/2020 active oxyCODONE-acetaminophen (PERCOCET) 5-325 MG per tablet 1 TABLET BY MOUTH EVERY 6 HOURS, SEVERE NEEDED FOR PAIN 02/10/2020 active amoxicillin 875 mg-potassium clavulanate 125 mg tablet TAKE 1 TABLET BY MOUTH TWICE A DAY FOR 7 DAYS 4 completed phentermine 30 mg capsule TAKE 1 CAPSULE BY MOUTH EVERY DAY FOR 28 DAYS 4 completed desvenlafaxine succinate ER 25 mg tablet,extended release 24 hr TAKE 1 TABLET BY MOUTH DAILY. DO NOT CRUSH/CHEW. BEGIN TAKING AFTER FULLY TAPERING OFF CITALOPRAM. active Gemtesa 75 mg tablet TAKE 1 TABLET BY MOUTH EVERY DAY active hydroxyzine HCl 25 mg tablet TAKE 0.5 TABLET BY MOUTH 3 TIMES A DAY NEEDED FOR ANXIETY active meloxicam 15 mg tablet TAKE 1 TABLET BY MOUTH EVERY DAY active Ocrevus active topiramate 25 mg tablet TAKE 1 TABLET BY MOUTH FOUR TIMES A DAY active albuterol HFA (PROAIR HFA ; PROVENTIL HFA ; VENTOLIN HFA) 90 mcg/actuation inhaler ProAir HFA 90 mcg/actuation aerosol inhaler active buPROPion XL (WELLBUTRIN XL) 150 mg 24 hr tablet Take 1 tablet (150 mg total) by mouth 1 (one) time each day. before breakfast active cholecalciferol (VITAMIN D-3) 25 mcg (1,000 unit) tablet 1 tablet (1,000 Units total) 1 (one) time each day at the same time. active fluconazole (DIFLUCAN) 150 mg tablet TAKE 1 TABLET (ORAL) DAILY FOR 1 DAYS TAKE NEEDED FOR SYMPTOMS OF A YEAST INFECTION. active ocrelizumab (OCREVUS) 30 mg/mL solution injection Infuse into a venous catheter. active phentermine 15 mg capsule Take 1 capsule (15 mg total) by mouth. active phentermine 15 MG capsule Take 1 capsule (15 mg total) by mouth every morning. active tirzepatide, weight loss, (Zepbound) 2.5 mg/0.5 mL solution 0.5 mL. active Allergies Allergen Reaction Severity Comment Documented Date Source Statu s PENICILLINS 08/07/2022 [facility] active AMOXICILLIN RASH 05/24/2021 [facility] active ADHESIVE TAPE 11/05/2019 [facility] active ADHESIVE TAPE-SILICONES 11/05/2019 [facility] active NATALIZUMAB OTHER (SEE COMMENTS) 09/02/2019 [facility] active LATEX [facility] TYSABRI [facility] Problems Problem Status Onset Date Problem Type Date of Resoluti on Source Multiple sclerosis ([facility] V24, [facility] V28) active 2021-01-12 [facility] Urinary frequency active 2019-10-17 ProblemAct [facility] Anxiety active 2019-10-17 [facility]Act [facility] Optic neuritis active 2019-10-17 [facility]Act [facility] Migraine without aura active 2019-10-17 [facility]Act [facility] Cervical myelopathy ([facility] V24, [facility] V28) active 2019-10-17 [facility]Act [facility] Spasticity active 2019-10-17 [facility]Act [facility] Asthma active 2019-10-17 [facility]Act [facility] Spasticity active 2019-10-17 [facility]Act [facility] Multiple sclerosis active 2024-01-30 ProblemAct [facility] Instability of joint of right knee active 2024-01-12 [facility]Act [facility] Sprain of medial collateral ligament of right knee joint active 2024-01-12 ProblemAct [facility] Closed fracture of tibial plateau active 2024-03-05 ProblemAct [facility] Encounters Encounter Type Encounter Reason Primary Diagnosis Location Date Ambulatory [facility] 04/23/2024 Ambulatory Other reduced mobility Other reduced mobility [facility] 04/09/2024 Ambulatory Other reduced mobility Other reduced mobility [facility] 04/09/2024 Ambulatory Pain in unspecified knee Pain in unspecified knee [facility] 04/02/2024 Ambulatory Pain in unspecified knee Pain in unspecified knee [facility] 04/02/2024 Ambulatory Pain in unspecified knee Pain in unspecified knee [facility] 03/28/2024 Ambulatory [facility] [place] 03/28/2024 Ambulatory Other reduced mobility Other reduced mobility [facility] 03/26/2024 Ambulatory Pain in unspecified knee Pain in unspecified knee [facility] 03/22/2024 Ambulatory Pain in right knee Pain in right knee [facility] 03/15/2024 Ambulatory Other reduced mobility Other reduced mobility [facility] 03/12/2024 Ambulatory Other reduced mobility Other reduced mobility [facility] 03/08/2024 Ambulatory Other reduced mobility Other reduced mobility [facility] 03/05/2024 Ambulatory Other reduced mobility Other reduced mobility [facility] 03/01/2024 Ambulatory Other reduced mobility Other reduced mobility [facility] 02/27/2024 Ambulatory Pain in right knee Pain in right knee [facility] 02/22/2024 Ambulatory [facility] [place] 02/17/2024 Ambulatory [facility] 01/25/2024 Ambulatory [facility] 01/25/2024 Ambulatory [facility] 01/15/2024 Ambulatory [facility] [place] 01/12/2024 Ambulatory [facility] 01/12/2024 Ambulatory [facility] [place] 01/12/2024 Ambulatory [facility] [place] 01/09/2024 Care Team Organization Name Specialty Phone Email Start Date End Kian chicas [employer] 12/18/2024 [facility] ROXANA MICHAEL Primary Care 05/13/2024 [facility] ROXANA MICHAEL Primary Care 05/10/2024 [facility] 03/29/2024 [facility] 02/28/2024 [facility] Primary Care 02/22/2024 01/14/2025
== END 2025-02-04 11:30 | disposition home or self-care (01) ==
LOC: HO.HGI 10:13
PROVIDERS: Visit Provider Nurse Practitioner Family
DX: R19.7 Diarrhea, unspecified (principal); G35 Multiple sclerosis
CPT/HCPCS: 99204

== ENCOUNTER → 2025-02-04 10:12 | Outpatient (BNVA) | payer MEDICARE, MEDICAID, SELFPAY | PROVIDERS: Visit Provider Nurse Practitioner Family | DX: G35 Multiple sclerosis (principal); R19.7 Diarrhea, unspecified | CPT/HCPCS: 99202 ==

== ENCOUNTER 2025-05-15 08:08 | Outpatient (AMB) | payer MEDICARE, MEDICAID, SELFPAY ==
--- OUTSIDE RECORDS SUMMARY | 2024-04-22 09:04 | XMS_ITS | Encounter Summary ---
Author Organization [facility] [place] [address] Care Team Providers Care Community Affairs Director Name Role Phone Man Arteaga MD Primary Care Provider [phone] Encounter Details Date Type Department Care Team (Late st Contact Info) Description 04/22/2024 10:04 AM EDT Hospital Encounter TH HISTORIC ENCOUNTERS EASTERN CONVERSION ONLY Zina Rizo PA [address] [place] [address] Social History Tobacco Use Types Packs/Day Years Used Date Smoking Tobacco: Every Day Smokeless Tobacco: Never Alcohol Use Standard Drinks/Week Comments Yes 0 (1 standard drink = 0.6 oz pur e alcohol) Comments Unknown Sex and Gender Information Value Date Recorded Sex Assigned at Not on file Legal Sex Female 10:21 PM EST Gender Identity Not on file Sexual Orientation Not on file documented as of this encounter Last Filed Vital Signs Vital Sign Reading Time Taken Comments Blood Pressure 97/66 04/22/2024 10:16 AM EDT Sitting Right arm Pulse 66 04/22/2024 10:16 AM EDT Temperature - - Respiratory Rate - - Oxygen Saturation - - Inhaled Oxygen Concentration - - Weight 122 kg (269 lb) 04/22/2024 10:16 AM EDT Height 162.6 cm (5' 4 ) 04/22/2024 10:1 6 AM EDT Body Mass Index 46.17 04/22/2024 10:16 AM EDT documented in this encounter Progress Notes * JEANIE Galo - 04/22/2024 10:00 AM EDT [facility] Cc: MS HPI: Patient is a 38 y.o. year old female who presents for follow-up regarding ongoing management of multiple sclerosis. Disease Summary Date of onset/Initial symptom presentation:2004 ON Date of diagnosis of MS: Disease course at onset:??RRMS Current disease course:??RRMS Last MS exacerbation: Previous disease therapies(reason for switch):Avonex,?Copaxone(failure), ??Gilenya??(faliure), Tysabri??(allergy coded) Current disease therapy:??Ocrevus Most recent MRI Brain:07/2023: stable ?? Most recent MRI Cervical spine: 07/2023 : stable cord dz Most recent MRI Thoracic spine: 07/2023- lesions T7, T9-10 stable compared to 2020 JCV serology result and date: MS mimickers:?? Relevant co-morbidities/health issues:??anxiety, asthma, migraine ?? Interim History: Patient presents for follow-up visit. She continues Ocrevus for disease modifying therapy and is scheduled for an infusion today in our infusion center as well. She notes that she fractured her R tibia in December after a fall. She has been doing PT at the [facility] and using the pool. She had been walking with a walker but just recently started doing some walking unassisted. She states that PT recommended considering Botox injections for treatment of LE spasticity. Has tried baclofen in the past but caused grogginess. Denies sx suggestive of new demyelinating event since last OV. No changes in bowel/bladder She notes that she has been seeing pyschiatry for treatment of bipolar disorder. Last visit history reviewed: She denies new neurological sx/sx suggestive of demyelinating event since she was last seen in the office. She tends to feel a wearing off of symptoms about 1 month prior to when her Ocrevus infusion is due. She notes increased fatigue, pain in her legs, heaviness in her arms, increasing falls. She notes that she had a sleep study performed recently which did not reveal sleep apnea but showedsignificant leg movements. She denies recent illness or infection. Review of Systems Constitutional: Positive for fatigue. Neurological: Positive for weakness and numbness. All other systems reviewed and are negative. Patient Active Problem List Diagnosis SNOMED CT(R) ??? Spasticity SPASTICITY ??? Optic neuritis OPTIC NEURITIS ??? Urinary frequency INCREASED FREQUENCY OF URINATION ??? Cervical myelopathy (HCC) CERVICAL MYELOPATHY ??? Migraine without aura MIGRAINE WITHOUT AURA ??? Asthma ASTHMA ??? Anxiety ANXIETY ??? Multiple sclerosis (HCC) MULTIPLE SCLEROSIS Current Outpatient Medications: ??? albuterol (PROAIR HFA) 108 (90 Base) MCG/ACT inhaler, ProAir HFA 90 mcg/actuation aerosol inhaler, Disp: , Rfl: ??? Armodafinil 150 MG tablet, Take 1 tablet (150 mg total) by mouth daily., Disp: 30 tablet, Rfl: 5 ??? citalopram (CeleXA) 40 MG tablet, TAKE 1 TABLET BY MOUTH EVERY DAY, Disp: 90 tablet, Rfl: 1 ??? ergocalciferol (VITAMIN D2) capsule 57782 units, TAKE 1 CAPSULE BY MOUTH ONE TIME PER WEEK N/C BY INS, Disp: 12 capsule, Rfl: 0 ??? gabapentin (NEURONTIN) 600 MG tablet, Take 1 tablet (600 mg total) by mouth 2 (two) times a day., Disp: 60 tablet, Rfl: 5 ??? ocrelizumab (OCREVUS) 300 MG/10ML SOLN, Inject into the vein., Disp: , Rfl: ??? oxyCODONE-acetaminophen (PERCOCET) 5-325 MG per tablet, 1 TABLET BY MOUTH EVERY 6 HOURS, SEVEREAS NEEDED FOR PAIN, Disp: , Rfl: ??? phentermine 15 MG capsule, Take 1 capsule (15 mg total) by mouth every morning., Disp: , Rfl: ??? SUMAtriptan (IMITREX) 100 MG tablet, TAKE 1 TABLET BY MOUTH EVERY DAY NEEDED FOR MIGRAINE, Disp: 9 tablet, Rfl: 5 ??? topiramate (TOPAMAX) 25 MG tablet, TAKE 1 TABLET BY MOUTH FOUR TIMES A DAY, Disp: 360 tablet, Rfl: 1 Neuro Exam BP 97/66 (BP Location: Right arm, Patient Position: Sitting) Pulse 66 Temp 97 ??F (36.1 ??C) (Temporal) Ht 5' 4 (1.626 m) Wt 122 kg (269 lb) BMI 46.17 kg/m?? Body mass index is 46.17 kg/m??. General: A&Ox3 Cranial Nerves: PERRL, EOMI without nystagmus, facial strength symmetric, no facial droop, tongue protrusion midline, speech clear, shoulder shrug symmetric Motor: Left ankle dorsiflexion 4+/5. Sensory: Decreased temperature and vibration sensation left foot. Reflexes: 2+/4+ bilateral biceps, 2+/4+ bilateral patellar Cerebellar: FTN without dysmetria or ataxia bilaterally, decreased bilateral foot tapping, left worse than right, negative Rhomberg Gait: Slower, wide-based gait, stiff 25 foot timed walk: 7.8, 7.2 seconds (9.0, 8.8 last visit) A/P: Multiple Sclerosis: Radha Suh is a 38 year-old female with relapsing MS treated with Ocrevus for disease-modifying therapy. Remains overall stable from an MS perspective although had a fall with right tibiafracture earlier this year. She is slowly progressing in terms of her rehab and is now walking a bit without a walker. She inquires about Botox treatment for spasticity in her lower extremities. I do not appreciate anydefinite spasticity so I am not sure she would be a candidate for Botox, although if she wishes shecould schedule a visit with Dr. Sanford for further assessment. 4 months or sooner as needed A. Disease modifying therapy and diagnostic plan: -Continue Ocrevus for disease modifying therapy -MRI brain and cervical spine will be performed on an annual basis to assess radiologic stability-she is due for these studies and orders entered today. B. Symptomatic treatment plan: Fatigue: Continue Nuvigil 150 mg daily. Depression: Continue citalopram 40 mg daily. Neuropathic pain : Continue gabapentin 600mg twice daily Headache : Well-controlled with Topamax 100 mg at bedtime Urinary sx: Continue care with [facility] Mood disorder: Continue with mental health care team Patient was encouraged to call the office with any new symptoms or concerns prior to next office visit Follow up in 4 months or sooner as needed The patient and I discussed the clinical picture during today's appointment. Additional time was spent prior to the actual appointment reviewing records, lab values and imaging results and preparing documentation for today's visit. There was also time spent following the in person visit documenting, arranging for further diagnostic testing and follow-up appointments. The entire time spent in thisprocess was greater than 30 minutes. The majority of the actual [id number] visit was spent counseling the patient with respect to the current neurological picture. Zina Rizo PA-C documented in this encounter Plan of Treatment Upcoming Encounters Date Type Department Care Team (Late st Contact Info) Description 07/07/2025 8:00 AM EST Appointment [facility] - [place] [address] [address] 07/11/2025 8:30 AM EST Telemedicine [facility] for [facility] - [address] [id number] Anthony Sanford MD [address] [place] [address] documented as of this encounter Goals Goal Patient Goal Type Associated Problems Recent Progress Patient-Stated? Author Pt goals General Yes Robbie Veronica, OT Note: To be able to reach up to wash my hair, to be able to stand for cooking documented as of this encounter Visit Diagnoses Not on filedocumented in this encounter Care Teams Community Affairs Director Relationship Specialty Start Date End Date Man Arteaga MD [address] [facility] [place] [address] PCP - General Internal Medicine 11/01/19 documented as of this encounter
--- NOTE | 2025-05-15 08:13 | MHC.OFFVIS ---
Vital Signs 05/15/25 08:14 Height 5 ft 4 in Weight 263 lb BMI 45.1 BP 108/53 L Blood Pressure Location Lt brachial Position Sitting Pulse 74 Intake Visit Reasons: 3 mo Intake Note: Patient 3 months follow up for diarrhea. Patient denies any GI issues. Continuous Conveyor Screen Drier Required: No Accompanied by: Self / Same As Patient Allergies Penicillins Allergy (Mild, Verified 05/15/25 08:12) Rash adhesive tape Allergy (Mild, Uncoded 06/22/22 07:54) Unknown latex Allergy (Unknown, Uncoded 06/22/22 07:54) Unknown HPI HPI 3 mo: Details: Patient is a 39-year-old female with PMH of obesity, MS, RLS and sleep disturbance. Referred by PCP for further evaluation of diarrhea secondary to suspected food allergy. Second opinion re: persistent alternating bowel habits (constipation and diarrhea); seeking continued GI care here. Underwent EGD and colonoscopy 04-22-2025: normal esophagus, stomach (no H. pylori), duodenum, and colon; no mucosal abnormality completed through [facility]. Pt notes hx of years-long alternating episodes of constipation and diarrhea. Since last GI eval and initiation of low FODMAP diet, stool urgency has decreased, though significant constipation persists. Most BM now consist of small, hard pellets; last true diarrhea episode prior to dietary changes. Longest interval w/o BM was ~2.5 weeks (pre-procedure); typically must track BM frequency to avoid prolonged constipation. Lactulose PRN partially relieves cramping but inconsistent in efficacy?when used daily, caused incontinence; currently trials every 4-5 days. Fiber supplementation (gummies) minimally effective; reports greater benefit from dietary fiber, but tolerates limited dietary intake due to aversion and fatigue post-prandially. No blood in stool; intermittent lower back pain associated w/ constipation, rare upper abdominal pain, rare N/V (only gael-menses). Denies recent hospitalizations, UC/ER visits, or significant interim events. [facility] Medical History (Updated 05/15/25 @ 08:41 by Cristina Carrington CNP) IBS (irritable bowel syndrome) Diarrhea FH: cholecystectomy Anxiety associated with section Surgical History Hx of cholecystectomy Hx of section H/O angioplasty Family History Maternal Grandmother Sleep apnea Brain cancer Bladder cancer Breast cancer Maternal Aunt Non Hodgkin's lymphoma Maternal Grandfather Sleep apnea Mother Colon cancer Social History Household Members: Spouse and Children Alcohol intake: current Alcohol intake frequency: holidays/special occasions only Patient Tobacco Use Status: Current someday Tobacco user Substance Use Type: Marijuana Review of Systems Const Reports as per HPI ENT Reports as per HPI Card Reports as per HPI Resp Reports as per HPI GI Reports as per HPI Reports as per HPI Physical Exam Vital Signs: Last Vital Signs Pulse 74 05/15/25 08:14 BP 108/53 L 05/15/25 08:14 BMI result Body Mass Index 45.1 Const General: healthy appearing, no acute distress and well developed Nutritional Appearance: average body habitus Orientation/consciousness: patient oriented x3 HEENT Head: Yes normal to inspection, Yes normocephalic and Yes atraumatic Face and sinus: Yes normal facial exam Eyes General: appearance normal, both eyes and all related structures Neck Neck: Yes normal visual inspection Resp Effort & Inspection: normal respiratory effort, able to speak in complete sentences, no tracheal deviation and symmetric chest movement Cardio Jugular venous distension: no JVD GI Inspection: Yes normal to inspection, No distended, Yes obesity and Yes striae Palpation (GI): Soft to palpation, not firm, nontender and No hepatosplenomegaly present Auscultation: normal bowel sounds Neuro General: patient oriented x3 Gait exam (Neuro): Normal gait present Psych Appearance: grossly normal Mental Status: mental status grossly normal Speech and movement: Normal speech and movement present Affect: normal affect Attitude: cooperative Thought process: Normal thought process present Thought content: Normal thought content present Insight: Good insight present (Psych) Judgement: Good judgement present (Psych) Results Reviewed Results Reviewed: Per pt portal review: -EGD/Colonoscopy: 04-22-2025 / Normal esophagus, stomach (no H. pylori), duodenum, colon; no mucosal abnormality - CBC: 04-16-2025 / WNL - Fecal calprotectin: 03-13-2025 / Normal - GI stool panel: 03-11-2025 / No pathogen detected - Fecal fat quant: 03-11-2025 / Normal - CMP: 03-07-2025 / Glucose 137, otherwise WNL - H. pylori: 12-05-2024 / Negative - TSH: 11-28-2024 / WNL - Folate: 11-28-2024 / WNL - C. diff: 12-04-2024 / Negative - Celiac serologies not available, but pt is gluten-free x3yrs; EGD/duodenal bx negative for celiac Assessment & Plan Assessment & Plan (1) IBS (irritable bowel syndrome): Code(s): K58.9 - Irritable bowel syndrome, unspecified Category: Medical Qualifiers: Irritable bowel syndrome type: with both diarrhea and constipation Qualified Code(s): K58.2 - Mixed irritable bowel syndrome Plan: Persistent symptoms; no red flag findings. Normal workup as above. Diarrhea controlled w/ low FODMAP diet, now predominately constipation. Inconsistent use of lactulose, and dietary restrictions limiting intake. Additional Testing: - No immediate further GI workup needed. - Food allergy/sensitivity testing offered; pt may pursue. Medications: - Skimmer Scoop Operator to titrate lactulose (trial every other day, then every 2-3 days as needed) to balance between constipation and urgency. - Recommend switching fiber supplementation to powder or tablet form if unable to optimize via diet. - No other Rx changes. - Monitor for side effects, particularly diarrhea/urgency. Lifestyle Recommendations: - Reinforce dietary fiber as primary source, within low FODMAP and gluten-free guidelines. - Deemphasize gummies; use powder or tablet if additional needed. - Continue food diary as supplement to sx tracking; strict elimination diet not immediately indicated, but consider if further sensitivities suspected. - Encourage engagement in enjoyable/xqb-wylrai-shzossv activity for stress mgmt and possible sx modulation. - Provided handouts: portal setup, prior diet handout confirmed, encourage regular use of secure messaging for record sharing/updating. Referrals / Coordination of Care: - Food allergy/sensitivity evaluation available per pt preference. - will attempt to obtain outside GI records Follow-Up Plan: - offered 3 months F/u, pt opted for f/u in 6 months or PRN for red flags (rectal bleeding, wt loss, protracted constipation, acute pain, etc). - Goal: establish regular BM, avoid extreme constipation and urgency, improve QOL. Plan Follow-up 6 months or sooner as needed Time: I spent a total of 31 minutes on the date of encounter which includes: Preparing to see the patient (reviewed previous documentation, test results and medical history) Performing a medically appropriate exam and/or evaluation Ordering medications, tests, and procedures Documenting clinical information in the health record Coding Level of Care Code Established Pt Est Pt Level 3 (88597) Patient Type Established Diagnoses Irritable bowel syndrome with both constipation and diarrhea K58.2 Irritable bowel syndrome type: with both diarrhea and constipation
[2025-05-15 08:14] VITALS: BP 108/53; PULSE 74; BMI 45.1
--- OUTSIDE RECORDS SUMMARY | 2025-05-15 08:21 | XMS_ITS | Encounter Summary ---
Author Organization [facility] Address [address] [place] [address] Care Team Providers Care Diaper Folder Name Role Phone Man Arteaga MD Primary Care Provider [phone] Encounter Details Date Type Department Care Team (Late st Contact Info) Description 02/03/2025 Lab Requisition [facility] - Main Lab [address] [facility] [place] [phone] Jeff Niño, JEANIE [address] [facility] [address] [place] [phone] Urinary tract infection, site not specified Social History Tobacco Use Types Packs/Day Years [...] on file documented as of this encounter Plan of Treatment Upcoming Encounters Date Type Department Care Team (Late st Contact Info) Description 07/07/2025 8:00 AM EST Appointment [facility] [place] [address] [phone] 07/11/2025 8:30 AM EST Telemedicine [facility] [place] [address] [facility] [address] [place] [phone] Anthony Sanford MD [address] [place] [address] documented as of this encounter Goals Goal Patient Goal Type Associated Problems Recent Progress Patient-Stated? Author Pt goals General Yes Robbie Veronica, OT Note: To be able to reach up to wash my hair, to be able to stand for cooking documented as of this encounter Procedures Procedure Name Priority Date/Time Associated Diagnosis Comments CULTURE URINE Routine 02/03/2025 12:00 PM EDT Urinary tract infection, site not specified documented in this encounter Results * Culture urine (02/03/2025 12:00 PM EDT) Culture, Urine 10,000-49,000 CFU/mL Mixed urogenital bella, no uropathogens present. Suggest repeat specimen if clinically indicated. 02/04/2025 8:51 AM EDT [facility] Urine Urine specimen obtained by clean catch procedure / Unknown 02/03/2025 12:00 PM EDT 02/03/2025 1:35 PM EDT us [facility] MICROBIOLOGY - GENERAL ORD ERABLES Final Result [facility] [address] [place] [address], documented in this encounter Visit Diagnoses Diagnosis Urinary tract infection, site not specified documented in this encounter Care Teams Diaper Folder Relationship Specialty Start Date End Date Man Arteaga MD [address] [place] [phone] PCP - General Internal Medicine 11/01/19 documented as of this encounter
--- OUTSIDE RECORDS SUMMARY | 2025-05-15 08:21 | XMS_ITS | Encounter Summary ---
Author Organization [facility] Address [address] [place] [address] Phone Care Team Providers Care Director Of Professional Services Name Role Phone Man Arteaga MD Primary Care Provider [phone] Encounter Details Date Type Department Care Team (Late st Contact Info) Description 12/19/2024 Procedure Pass [facility] [place] Emergency Radiology, Main [place] [address] [place] [address], Floor 1 [place] [address] Social History Tobacco Use Types Packs/Day Years [...] 12:45 PM EDT Gema Burger RN * [place] Suicide Severity Rating Scale (Screener/Recent Self-Report) Question [...] on filedocumented in this encounter Care Teams Director Of Professional Services Relationship Specialty Start Date End Date Jenni, Man F, MD [address] [place] [address] PCP - General Internal Medicine 12/19/24 documented as of this encounter Additional Source Comments The information contained in this document represents components of the legal health record. It is not the complete legal health record.[facility]
--- OUTSIDE RECORDS SUMMARY | 2025-05-15 08:21 | XMS_ITS | Encounter Summary ---
Author Organization [facility] Address [address] [place] [address] Phone Care Team Providers Care Ground Support Equipment Assembler Name Role Phone Man Arteaga MD Primary Care Provider [phone] Encounter Details Date Type Department Care Team (Late st Contact Info) Description 12/19/2024 Procedure Pass [facility] [place] Emergency Radiology, Main [place] [address] [place] [address], Floor [address] [place] [address] Social History Tobacco Use Types Packs/Day Years [...] 12:45 PM EDT Gema Burger RN * [place] Suicide Severity Rating Scale (Screener/Recent Self-Report) Question [...] on filedocumented in this encounter Care Teams Ground Support Equipment Assembler Relationship Specialty Start Date End Date Jenni, Man F, MD [address] [place] [address] PCP - General Internal Medicine 12/19/24 documented as of this encounter Additional Source Comments The information contained in this document represents components of the legal health record. It is not the complete legal health record.[facility]
--- OUTSIDE RECORDS SUMMARY | 2025-05-15 08:21 | XMS_ITS | Data Portability ---
Author Organization [place] [facility] [place] Address [address] [place] [address] Care Team Providers Care Floor Technician Name Role Phone ROXANA MICHAEL Primary Care Provider Assessment Encounter Date Assessment Date Assessment LastModified by Organization Details LastModified Time 01/12/2024 01/12/2024 Patient is a 38-year-old female who fell getting out of a car. She has a history of MS. She has an MCL sprain, but also concern for an ACL rupture. An MRI will be obtained to better assess the ligaments. She will follow-up after the MRI with Dr. Colindres. She has a double hinged knee brace which she is currently using. She needs a wheelchair for current mobility. Symptoms are complicated by morbid obesity. Meloxicam had reacted with her MS medications. Anti-inflammator ies will be avoided. Patient was seen and evaluated by Zeb Dai PA-C in indirect conjunction with Dr. Colindres. The provider agrees with the history, physical examination, recommended tests/diagnostic imaging, and treatment plan. [email or web address] Not available 01/12/2024 15:41:35 01/30/2024 01/30/2024 Right knee injury 1 month ago. MRI images reviewed in detail with patient and consistent with contusion versus nondisplaced fracture lateral tibial plateau. I favor nondisplaced fracture. Ligaments appear intact. We discussed in detail the risks and benefits of treatment options. Emphasized the importance of weight loss/management and overall healthy lifestyle. We discussed the importance of an osteoporosis work-up. She should continue with gentle exercises. We reviewed appropriate exercises to engage in strength and the leg muscles while she is recovering from injury. I strongly encourage PT, including generalized strengthening related to her MS. She should try to remain off her leg as much as possible. She will ice as needed. She will try to utilize her braces that she has at home. I recommend returning to the MS rehab centers. PT prescription given today. She has a goal of going to [place] at the end of April. She will follow-up in 5 weeks for repeat evaluation and x-ray. tana Not available 01/30/2024 11:23:28 03/05/2024 03/05/2024 Findings consistent with focal anterior third tibial plateau fracture with mild focal depression. Overall contour maintained. She will continue with protected weightbearing, formal PT and home exercises. She will follow-up in 2 months with new x-rays with me in [place]. tana Not available 03/05/2024 15:28:44 05/21/2024 05/21/2024 Improvement in symptoms following PT and home exercises. She should continue her normal routines with PT related to her MS. She is able to return to driving. She will follow-up on as-needed basis. tana Not available 05/21/2024 16:34:25 Plan of Treatment Reminders Order Date Submit Date Provider Last Modified By Organization Details Last Modified Time Details Appointments None recorded . Lab None recorded . Referral None recorded . Procedures None recorded . Surgeries None recorded . Imaging XR, knee, 3 view 2023 024 tana [facility], [address], [place], [address], 4 14:54:38 XR, knee, 3 view 2023 024 tana [facility], [address], [place], [address], 4 08:53:15 MRI, knee, w/o contrast - Fall with knee instabil ity. History of MS. Rule out ACL rupture. Assess MCLPl ease call patient to schedule and hand carry CD 2023 024 [facility] [address], [place], [address], 15:13:42 XR, knee, 3 view 2023 024 [email or web address] [facility], [address], [place], [address], 16:24:49 Medication Orders None recorded . Patient TargetsNo targets recorded. Patient Instructions Encounter Date Encounter Id Patient Instructions Last Modified By Organization Details Last Modified Time 01/12/2024 [id number] Radiographs: 3 views of the Right knee were obtained in the [place] office on 01/12/2024 including AP, lateral (weightbearing), and sunrise. X-rays demonstrated normal bony mineralization. Joint spaces well-maintained. No evidence of acute injury or fracture. Findings: Normal . X-ray interpretation by: Zeb Dai PA-C [email or web address] Not available 01/12/2024 15:36:25 01/30/2024 [id number] Suggest ice, res t and NSAIDs as needed. Prescription given for physical therapy/aqua therapy to include the following: aqua therapy, gait training, protective weight-bearing initially, weight-bearing only with assist devices, may progress as tolerated, especially after 6-8 weeks post injury, encourage strengthening exercises in pool setting, general conditioning [email or web address] Not available 01/30/2024 11:06:14 03/05/2024 [id number] Suggest ice, res t and NSAIDs as needed. [email or web address] Not available 03/05/2024 08:16:59 Wagoner, lateral, merchant views of the right knee obtained 03/05/2024 show likely focal, depressed anterior third tibial plateau fracture. Overall contour of proximal tibia maintained. Read and interpreted by Dr. Doug fajardo Not available 03/05/2024 15:18:15 05/21/2024 [id number] Suggest ice, res t and NSAIDs as needed. tatum Not available 05/17/2024 16:07:02 Wagoner, lateral, merchant views of the right knee obtained 05/21/2024 show preservation of joint spaces without obvious evidence for fracture. Read and interpreted by Dr. Doug fajardo Not available 05/21/2024 15:32:58 Reason for Referral None Reported. Results Created Date Observation Date Name Description Value Unit Range Abnormal Flag Note LastModifiedBy Organization Detail LastModifiedTime 01/19/20 24 01/18/2024 MRI, knee, w/o contr ast No observ ation record ed. [facility] [address] [place], [address], 01/30/2024 08:08:18 02/06/20 24 imagi ng/di agnos tic resul t No observ ation record ed. [email or web address] Not Available 02/05 13:16:18 Result Notes None recorded. Problems Name Problem SNOMED Code Status Onset Date Resolution Date Notes Provider Name and Address Organization Details Recorded Time Instability of joint of right knee 2027292032768 102 Active [address], [place], [address], [place] [facility] 4 15:24:23 Sprain of medial collateral ligament of right knee joint 8779443571053 9104 Active [address], [place], [address], [place] [facility] 4 15:24:42 Multiple sclerosis 41334567 Active [address], [place], [address], [place] [facility] 4 11:24:02 Closed fracture of tibial plateau 465496464 Active [address], [place], [address], [place] [facility] 4 15:28:13 Problem Notes None recorded. Procedures Surgical History Date Name Laterality Status Provider Name and Address Organization Details Recorded Time delivery completed [facility] [place] [facility] 01/12/2024 14:39:55 Gallbladder Surgery completed [facility] 01/12/2024 14:40:02 procedure on kidney completed [facility], [facility] 01/12/2024 14:40:21 Imaging Results None recorded. Procedure Notes None recorded. Medical Equipment None Reported. Allergies Allergen ID Allergen Name Allergen Category Reaction Reaction Severity Criticality Documentation Date Start Date Code Code System Note Provider Name and Address Organization Details Recorded Time 68315 latex environme nt,medica tion Not available Not available Not available 01/12/2024 63281 91 RxNorm Odalys Solowinsk i null, [place] - [facility] 4 14:35:50 77390 adhesive environme nt,medica tion Not available Not available Not available 01/12/2024 Odalys Solowinsk i null, [place] - [facility] 4 14:35:58 57615 Tysabri medicatio n Not available Not available Not available 01/12/2024 28912 5 RxNorm Odalys Solow[place] i null, [place] [facility], [facility] 4 14:36:13 Medications Name Sig Start Date Stop Date Status Note LastModified by Organization Details LastModified Time gabapentin 600 mg tablet TAKE 1 TABLET BY MOUTH TWICE A DAY active Not Available Not Available No t Available citalopram 40 mg tablet TAKE 1 TABLET BY MOUTH EVERY DAY active Not Available Not Available No t Available fluconazole 150 mg tablet TAKE 1 TABLET (ORAL) DAILY FOR 1 DAYS TAKE NEEDED FOR SYMPTOMS OF A YEAST INFECTION . active Not Available Not Available No t Available benzonatate 200 mg capsule TAKE 1 CAPSULE (ORAL) 3 TIMES PER DAY (COUGH) FOR 7 DAYS 01/29 completed Not Available Not Available Not Available sumatriptan 100 mg tablet TAKE 1 TABLET BY MOUTH EVERY DAY NEEDED FOR MIGRAINE active Not Available Not Available No t Available meloxicam 15 mg tablet TAKE 1 TABLET BY MOUTH EVERY DAY active Not Available Not Available No t Available ondansetron HCl 4 mg tablet TAKE 1 TABLET BY MOUTH EVERY 8 HOURS active Not Available Not Available No t Available topiramate 25 mg tablet TAKE 1 TABLET BY MOUTH FOUR TIMES A DAY active Not Available Not Available No t Available phentermine 30 mg capsule TAKE 1 CAPSULE BY MOUTH EVERY DAY FOR 28 DAYS 01/29 completed Not Available Not Available Not Available hydroxyzine HCl 25 mg tablet TAKE 0.5 TABLET BY MOUTH 3 TIMES A DAY NEEDED FOR ANXIETY active Not Available Not Available No t Available amoxicillin 875 mg-potassiu m clavulanate 125 mg tablet TAKE 1 TABLET BY MOUTH TWICE A DAY FOR 7 DAYS 01/29 completed Not Available Not Available Not Available bupropion HCl XL 150 mg 24 hr tablet, extended release TAKE 1 TABLET BY MOUTH EVERY DAY BEFORE BREAKFAST active Not Available Not Available No t Available gabapentin 01/29 completed Not Available Not Available Not Available Topamax active Not Available Not Avail able Not Available armodafinil 150 mg tablet TAKE 1 TABLET BY MOUTH EVERY DAY 01/29 completed Not Available Not Available Not Available desvenlafax ine active Not Available Not Available Not Available desvenlafax ine succinate ER 25 mg tablet,exte nded release 24 hr TAKE 1 TABLET BY MOUTH DAILY. DO NOT CRUSH/NAUN W. BEGIN TAKING AFTER FULLY TAPERING OFF CITALOPRA M. active Not Available Not Available No t Available Ocrevus active Not Available Not Avail able Not Available Gemtesa 75 mg tablet TAKE 1 TABLET BY MOUTH EVERY DAY active Not Available Not Available No t Available Vitals Date Recorded Body height Body mass index (BMI) Body weight Provider Name and Address Organization Details Last Updated DateTime 01/12/2024 162.56 cm 44.6 kg/m2 891462.[address] [place] [facility] 01/12/2024 14:37:39 Date Recorded Body height Body mass index (BMI) Body weight Provider Name and Address Organization Details Last Updated DateTime 01/30/2024 162.56 cm 44.6 kg/m2 353781.[address] [place] [facility] 01/30/2024 10:27:22 Social History None recorded. Functional Status Question Answer Note LastModified by Organizat ion Details LastModified Time Do you use any illicit or recreational drugs? Yes Information not available 01/12/2024 What is your level of alcohol consumption? Occasional Information not available 01/12/2024 Mental Status None recorded. Family History Relationship Description Onset Age of this Age Resolved Age Notes LastModified by Organization Details LastModified Time Mother Blood coagulation disorder renetta Not available 12/31 14:39:17 Mother History of cancer of unknown primary site matthew Not available 10:06:50 Sister Blood coagulation disorder renetta Not available 12/31 14:39:17 Father History of cancer of unknown primary site [email or web address] Not available 10:06:50 Father Rheumatoid arthritis renetta Not available 12/31 14:39:47 Medical History Condition Response Asthma Y Gynecological HistoryNo gynecological history recorded. Obstetrics History GPAL:G 0 P 0 0 0 0 Past Encounters Encounter ID Performer Location Encounter Start Date Encounter Closed Date Diagnosis/Indication Diagnosis SNOMED-CT Code Diagnosis ICD10 Code Diagnosis IMO Codes Diagnosis Note [id number] ZEB DAI PA-C Formerly [facility] [address] [place] [address] [place] [phone] 01/12/2024 13:58:52 01/12/2024 15:28:49 Pain of right knee joint 6973200280 88656 M25.561 Additional diagnosis detail: Pain, joint, knee, right Instabilit y of joint of right knee 9058779327 559875 M25.361 Additional diagnosis detail: Unstable right knee Sprain of medial collateral ligament of right knee joint 9358448720 0044808 S83.411A Additional diagnosis detail: Sprain of medial collateral ligament of right knee, initial encounter [id number] Doug Colindres MD [address] [place] [address] 01/30/2024 10:06:19 01/30/2024 11:11:32 Pain of right knee joint 0644161663 51381 M25.561 Additional diagnosis detail: Pain, joint, knee, right Body mass index 40+ - severely obese 841037260 Z68.41 Additional diagnosis detail: BMI 40.0-44.9, adult Contusion of right knee 6147722307 3947267 S80.01XA Additional diagnosis detail: Contusion of right knee, initial encounter Multiple sclerosis 42473 007 G35 [id number] Doug Colindres MD [facility] [address] [facility] [address] [place] [address] 03/05/2024 14:54:37 03/05/2024 15:23:39 Instability of joint of right knee 5265587197 447673 M25.361 Pain of ri ght knee joint 1208653144 00879 M25.561 Additional diagnosis detail: Pain, joint, knee, right Body mass index 40+ - severely obese 397456463 Z68.41 Additional diagnosis detail: BMI 40.0-44.9, adult Multiple sclerosis 60676 007 G35 Closed fra cture of tibial plateau 635750877 S82.141D [id number] Additional diagnosis detail: Contusion of right knee, initial encounter [id number] Doug Colindres MD [facility] [address] [phone] 05/21/2024 14:38:48 05/21/2024 15:42:58 Instability of joint of right knee 3955965939 318014 M25.361 Closed fra cture of tibial plateau 918657137 S82.141D [id number] Additional diagnosis detail: Contusion of right knee, initial encounter Pain of ri ght knee joint 1225269392 68370 M25.561 Additional diagnosis detail: Pain, joint, knee, right Body mass index 40+ - severely obese 603197883 Z68.41 Additional diagnosis detail: BMI 40.0-44.9, adult Multiple sclerosis 54962 007 G35 Health Concerns Section Related Observation LastModified by Organization Detai ls LastModified Time None Recorded Concern Status LastModified by Organization Details LastModified Time None Recorded Advance Directives Directive None Recorded Payers Insurance Date Sequence Insurance Name Policy Number Policy Michaels Covered Member ID Michaels Member ID Guarantor Name 04/07/2025 1 [place]ICARE [place]: [facility] Miriam Ramirez-Bli ss [id number] Miriam DawsonBli ss 04/07/2025 2 [place] [facility] Miriam Ramirez-Bli ss [id number] Miriam Ramirez-Bli ss Notes Date Note Type Note Provider Name and Address Organization Details Recorded Time 01/12/2024 text/html ROS as noted in the HPI Date of injury: 12/28/2023 Patient is a pleasant 38-year-old female with a past medical history significant for progressive MS presents with acute right knee pain. She was getting out of a car in [place] and her knee buckled and twisted. She was seen at an urgent care. She was placed in a knee immobilizer and told she may have torn her ACL. She had some mild swelling. She has been resting since. She brought her own knee brace since the immobilizer kept sliding down. With her ongoing symptoms, she presents today for orthopedic consultation. She was given meloxicam, but it reacted with her MS medications. No prior injury or trauma to her knee. ZEB DAI PA-C [address], [place], [address], [place] [facility] 01/12/2024 15:42:44 01/30/2024 text/html Miriam presents to the office today for an evaluation of her right knee. She sustained an injury 12/28/2023 while in [place]. She underwent an MRI on 01/18/2024 at [facility]. She is in a wheelchair due to her MS. She tried to walk with crutches a couple days ago with increased hesitancy. Before her injury, she walked with a limp. Her left leg drags behind her. She notes that sitting down reproduces a feeling of her leg being torn apart . She cannot bear weight. Her pain is mild and intermittent. On average, her pain is a 3 out of 10 and an 8 out of 10 at worst. Her function and motion are limited. She notes numbness and tingling. She enjoys swimming. She notes she does this a lot in the summer. She has trouble with steps due to her legs. She feels her legs do not feel stable enough. She was given meloxicam, but it reacted with her MS medications. She notes she has not done any MS rehab ([facility]) recently. She is hoping to go to [place] at the end of April. They are hoping to move to [place], but this injury put that on hold. Zeb Dai's Office Note 01/12/2024:Date of injury: 12/28/2023atient is a pleasant 38-year-old female with a past medical history significant for progressive MS presents with acute right knee pain. She was getting out of a car in [place] and her knee buckled and twisted. She was seen at an urgent care. She was placed in a knee immobilizer and told she may have torn her ACL. She had some mild swelling. She has been resting since. She brought her own knee brace since the immobilizer kept sliding down. With her ongoing symptoms, she presents today for orthopedic consultation.She was given meloxicam, but it reacted with her MS medications.No prior injury or trauma to her knee. MD [address], [place], [address], [facility] - [facility] 01/30/2024 11:24:17 03/05/2024 text/html Miriam returns to the office today for a follow-up for her right knee. She is able to ambulate with a walker. Her pain is mild and intermittent. On average, her pain is a 3 out of 10 and a 7 out of 10 at worst. She notes her leg dangling reproduces pain. Her function and motion are improving. She notes swelling, numbness and tingling. She has tried rest, ice, aqua/land therapy with relief. Doug Colindres MD [address], [place], [address], [facility] 03/05/2024 15:29:06 05/21/2024 text/html Miriam returns to the office today for a follow-up for her right knee. She is gradually improving. Her pain is mild and intermittent. On average, her pain is a 3 out of 10 and a 7 out of 10 at worst. Her function and motion are improving. She notes her knee gives out on her sometimes. She has tried ice, elevation, formal PT and home exercises. She presents with her walker. She went to [place] 2 weeks ago. Doug Colindres MD [address], [place], [address], [facility] 05/21/2024 16:34:48 OBGyn Episode No OBEpisode recorded.
--- OUTSIDE RECORDS SUMMARY | 2025-05-15 08:21 | XMS_ITS | Clinical Summary ---
Author Organization [facility] Address [address] [place] [address] Phone Care Team Providers Care Six Horse Hitch Driver Name Role Phone Man Arteaga MD Primary Care Provider [phone] Allergies Active Allergy Reactions Criticality Noted Date Comments Adhesive Tape-Silicones 12/19/2024 Latex 12/19/2024 Natalizumab 12/19/2024 Medications gabapentin (NEURONTIN) 600 MG tablet Take 600 mg by mouth 3 (three) times a day. Active SUMAtriptan (IMITREX) 100 MG tablet Take 100 mg by mouth once as needed for migraine. Can repeat dose in 2 hours if needed. Do not exceed 2 doses in a 24 hour period. Max dose 200mg/ day Active vibegron (GEMTESA) 75 mg tablet Take 75 mg by mouth daily. Active phentermine 15 MG capsule Take 15 mg by mouth daily before breakfast. Active buPROPion (WELLBUTRIN SR) 150 MG SR 12 hr tablet Take 150 mg by mouth once. Active hydrOXYzine (ATARAX) 25 MG tablet Take 25 mg by mouth every 4 (four) hours as needed for itching. Active folic acid (FOLVITE) 1 MG tablet Take 1 mg by mouth daily. Active benzonatate (TESSALON) 100 MG capsule Take 200 mg by mouth 3 (three) times a day as needed for cough. Active topiramate (TOPAMAX) 25 MG capsule Take 25 mg by mouth 4 (four) times a day. Active desvenlafaxine succinate (PRISTIQ) 50 MG 24 hr tablet Take 50 mg by mouth daily. Active ocrelizumab (OCREVUS IV) Inject into the vein. Active Social History Tobacco Use Types Packs/Day Years Used Date Smoking Tobacco: Never Smokeless Tobacco: Never Tobacco Cessation:Counseling Given: Not Answered Alcohol Use Standard Drinks/Week Comments Not Currently [...] on file Sexual Orientation Not on file Last Filed Vital Signs Vital Sign Reading Time Taken Comments Blood Pressure 120/74 12/19/2024 9:42 PM EDT Pulse 65 12/19/2024 9:42 PM EDT Temperature 36.2 C (97.1 F) 12/19/2024 9:42 PM EDT Respiratory Rate 18 12/19/2024 9:42 PM EDT Oxygen Saturation 99% 12/19/2024 9:42 PM EDT Inhaled Oxygen Concentration - - Weight 121.1 kg (267 lb) 12/19/2024 12:41 PM EDT Height 162.6 cm (5' 4 ) 12/19/2024 12:41 PM EDT Body Mass Index 45.83 12/19/2024 12:41 PM EDT Plan of Treatment Health Maintenance Due Date Last Done Comments Adult Td,Tdap Booster 1984 DEPRESSION SCREENING 1996 HEPATITIS C SCREENING 2002 HIV ONE-TIME SCREENING (18-6 5 YEARS) 2002 PAP SMEAR 2005 SMOKING STATUS SCREENING (On ce After 26 Yrs) 2010 MAMMOGRAM 2024 INFLUENZA VACCINE (#1) 2025 COVID-19 VACCINE (2024-2 6 season) 2025 SCREENING FOR DIABETES 12/20/2027 , 12/19/2024 HEPATITIS A VACCINES Aged Out No long er eligible based on patient's age to complete this topic HIB VACCINES Aged Out No longer eligi ble based on patient's age to complete this topic IPV VACCINES Aged Out No longer eligi ble based on patient's age to complete this topic MENINGOCOCCAL VACCINES (ACWY) Aged Out No longer eligible based on patient's age to complete this topic MENINGOCOCCAL VACCINES (B) Aged Out N o longer eligible based on patient's age to complete this topic PNEUMOCOCCAL VACCINES (0-49 years) Aged Out No longer eligible b ased on patient's age to complete this topic Medical Devices Not on file [place] & [place] HEALTH MEDICARE PART A & [place] A & B Care Teams Six Horse Hitch Driver Relationship Specialty Start Date End Date Man Arteaga MD [address] [facility] [place] [address] PCP - General Internal Medicine 12/19/24 Additional Source Comments The information contained in this document represents components of the legal health record. It is not the complete legal health record.[facility]
--- OUTSIDE RECORDS SUMMARY | 2025-05-15 08:21 | XMS_ITS | Clinical Summary ---
Author Organization [address] [facility] Address [address] [place] [address] Phone Care Team Providers Care Icing And Glaze Maker Name Role Phone Man Arteaga MD Primary [...] 1 tablet (150 mg total) by mouth. 12/14/19 22 Active ergocalciferol (VITAMIN D-2) 1,250 mcg (50,000 unit) capsule Take 1 capsule (50,000 Units total) by mouth 1 (one) time per week. 05/16/20 22 Active ocrelizumab (OCREVUS) 30 mg/mL solution injection Infuse into a venous catheter. Active oxyCODONE-acet aminophen (PERCOCET) 5-325 mg per tablet 1 TABLET BY MOUTH EVERY 6 HOURS, SEVERE NEEDED FOR PAIN 02/10/20 20 Active phentermine 15 mg capsule Take 1 capsule (15 mg total) by mouth. Active SUMAtriptan (IMITREX) 100 mg tablet 1 po qd PRN migraine 10/29/19 22 Active topiramate (TOPAMAX) 25 mg tablet Take 1 tablet (25 mg total) by mouth. 04/28/20 22 Active Gemtesa 75 mg tablet tablet Take 1 tablet (75 mg total) by mouth 1 (one) time each day. 05/24/20 24 Active desvenlafaxine succinate (PRISTIQ) 25 mg 24 hr tablet TAKE 1 TABLET BY MOUTH DAILY. DO NOT CRUSH/CHEW. BEGIN TAKING AFTER FULLY TAPERING OFF CITALOPRAM. 04/12/20 24 Active buPROPion XL (WELLBUTRIN XL) 150 mg [...] by mouth 1 (one) time each day. 12/07/19 25 Active fluconazole (DIFLUCAN) 150 mg tablet TAKE 1 TABLET (ORAL) DAILY FOR 1 DAYS TAKE NEEDED FOR SYMPTOMS OF A YEAST INFECTION. Active hydrOXYzine HCL (ATARAX) 25 mg tablet Take 1 tablet (25 mg total) by mouth Every 4 hours as needed. 06/11/20 24 Active gabapentin (NEURONTIN) 600 mg tablet TAKE 1 TABLET BY MOUTH TWICE A DAY 60 tablet 1 05/13/20 25 Active gabapentin (NEURONTIN) 600 mg tablet Take 1 tablet (600 mg total) by mouth 2 (two) times a day. 60 tablet 3 08/30/19 25 025 Discontinued Active Problems Problem Noted Date Diagnosed Date Multiple sclerosis 01/12/2021 Anxiety 10/17/2019 Asthma 10/17/2019 Cervical myelopathy ([facility] V24, [facility] V28) 0 10/17/2019 Migraine without aura 10/17/2019 Optic neuritis 10/17/2019 Spasticity 10/17/2019 Urinary frequency 10/17/2019 Encounters Date Type Department Care Team Description 03/20/2025 2:30 PM EDT Office Visit [facility] [address] [address] Zina Rizo PA Multiple sclerosis ([facility] V24, [facility] V28) (Primary Dx) from Last 3 Months Surgical History Surgery Date Site/Laterality Comments GALLBLADDER SURGERY PROCEDURE:GALLBLADDER SURGERY SECTION PROCEDURE: SECTION;COMMENT:twice Medical History Medical History Date Comments Anxiety DX:Anxiety Asthma DX:Asthma Gait instability DX:Gait instabi lity Headache, migraine DX:Headache, migraine;COMMENT:With and Without Aura Multiple sclerosis DX:Multiple s clerosis (HCC) Cervical myelopathy ([facility] V24, [facility] V28) DX:Cervical myelopathy (HCC) Vitamin D deficiency [...] Sign Reading Time Taken Comments Blood Pressure 121/76 03/20/2025 2:31 PM EDT Pulse 86 03/20/2025 2:31 PM EDT Temperature 36.2 C (97.2 F) 01/29/2025 11:06 AM EDT Respiratory Rate 18 01/29/2025 11:06 AM EDT Oxygen Saturation 98% 03/20/2025 2:31 PM EDT Inhaled Oxygen Concentration - - Weight 122 kg (269 lb) 03/20/2025 2:31 PM EDT Height 162.6 cm (5' 4 ) 04/22/2024 10:16 AM EDT Body Mass Index 46.17 04/22/2024 10:16 AM EDT Plan of Treatment Upcoming Encounters Date Type Department Care Team (Late st Contact Info) Description 07/07/2025 8:00 AM EST Appointment [facility] - [place] 175 [facility] [address] [place] [phone] 07/11/2025 8:30 AM EST Telemedicine [facility] [place] 175 [facility] [address] [place] [phone] Anthony Sanford MD [address] [place] [address] Health Maintenance Due Date Last Done Comments Breast Cancer Screening 1984 DTaP,Tdap,and Td Vaccines (1 - Tdap) 2003 Hepatitis B Vaccines (1 of 3 - 19+ 3-dose series) 2003 Cervical Cancer Screening: Pap Smear 2005 HPV Vaccines (1 - 3-dose SCDM series) 2011 HIV Screening 06/09/2022 Hepatitis C Screening 06/09/2022 Social Influencers of Health Screening 06/09/2022 Medicare Annual Wellness Visit 05/17/2023 05/17/2022 Depression Screening 07/03/2024 COVID-19 Vaccine ( - season) 2025 Cholesterol Screening (Lipid Panel) 12/19/2029 12/19/2024 RSV Immunization Adult Patients (1 - 1-dose 75+ series) 2059 Meningococcal ACWY Vaccine Aged Out 12/24/2010 N o longer eligible based on patient's age to complete this topic Influenza Vaccine Completed 03/12/2025, , 06/05/2023, Additional history exists Pneumococcal Vaccine: Pediatrics (0 to 5 Years) and At-Risk Patients (6 to 49 Years) Completed 03/12/2025, 03/09/2018 HIB Vaccines Aged Out No longer eligi [...] to be able to stand for cooking Insurance MEDICARE MEDICAID - [place] Care Teams Icing And Glaze Maker Relationship Specialty Start Date End Date Man Arteaga MD [address] [place] [address] PCP - General Internal Medicine 11/01/19
--- OUTSIDE RECORDS SUMMARY | 2025-05-15 08:21 | XMS_ITS | Encounter Summary ---
Author Organization [facility] Address [address] [place] [address] Care Team Providers Care Department Helper Name Role Phone Man Arteaga MD Primary Care Provider [phone] Encounter Details Date Type Department Care Team (Late st Contact Info) Description 06/21/2024 Lab Requisition [facility] - Main Lab [address] [facility] [place] [phone] Leon Cruz PA [address] [facility] [address] [place] [phone] Benign essential microscopic hematuria Social History Tobacco Use Types Packs/Day Years [...] Info) Description 07/07/2025 8:[address] [facility] - [place] [address] [phone] 07/11/2025 8:[address] [facility] [place] 175 [facility] [address] [place] [phone] Anthony Sanford MD [address] [place] [address] documented as of this encounter Procedures Procedure Name Priority Date/Time Associated Diagnosis Comments AP OUTSIDE CONSULT Routine 06/17/2024 12 :00 AM EST Benign essential microscopic hematuria documented in this encounter Results * Anatomic pathology outside consult (06/17/2024 12:00 AM EST) Final Diagnosis Urine, Voided: Negative for high grade urothelial carcinoma. 07/08/2024 2:13 PM EST [facility] Clinical Information [id number] Cytology w/Reflex UroVysion (AUC/SHGUC) 07/08/2024 2:13 PM EST [facility] Gross Description A. Urine, Voided, : [id number] Received 1 TP (CYTO) with Reflex Fish if Atypical/Susp 07/08/2024 2:13 PM EST [facility] Disclaimer Unless otherwise specified, all tissue is 10% NB formalin fixed and paraffin embedded. Technical pathology services provided by [facility] at [address], [place] [address] (CLIA #[id number] rachael Rayo MD, Nuclear Medicine Officer) 07/08/2024 2:13 PM EST [facility] Tissue Urine specimen from urethra / Unknown 06/17/2024 06/21/2024 2:03 PM EST us Leon [facility] PATHOLOGY ORDERAB LES Final Result [facility] [address] [place] [address], documented in this encounter Visit Diagnoses Diagnosis Benign essential microscopic hematuria documented in this encounter Care Teams Department Helper Relationship Specialty Start Date End Date Man Arteaga MD [facility] [place] [address] PCP - General Internal Medicine 11/01/19 documented as of this encounter
--- OUTSIDE RECORDS SUMMARY | 2025-05-15 08:21 | XMS_ITS | Clinical Summary ---
Author Organization [facility] Address [address] [place] [address] Care Team Providers Care Wood Router Hand Name Role Phone Man Arteaga MD Primary Care Provider [phone] Allergies Active Allergy Reactions Criticality Noted Date Comments Adhesives/Tape Unknown/Patient and Family Unable to Define Medium 11/05/2019 Natalizumab Dyskinesia/Dystonia, Unk nown/Patient and Family Unable to Define,Other (See Comments) Medium 09/02/2019 Other reaction(s): Other (See Comments) Penicillins Rash/Dermatitis High 05/24/2021 Pt stated amoxicillin gives her very bad yeast infections Medications phentermine 30 MG capsule Take by mouth. Active desvenlafaxine (PRISTIQ) 50 MG 24 hr tablet Take 50 mg by mouth. Active gabapentin (NEURONTIN) 600 MG tablet 1 tablet by Mouth/Oral Cavity route every 12 hours. 03/15/2025 Active topiramate (TOPAMAX) 25 MG tablet Take 25 mg by mouth 4 (four) times a day. 04/14/2024 Active buPROPion (WELLBUTRIN XL) 150 MG 24 hr tablet Take 150 mg by mouth every morning before breakfast. 11/07/2024 Active vibegron (Gemtesa) 75 mg tablet Take 75 mg by mouth. 05/24/2024 Active Active Problems Problem Noted Date Diagnosed Date Depression 03/31/2025 Severe obesity 03/31/2025 Cellulitis of left thigh 03/14/2025 Closed fracture of tibial plateau 03/05/2024 Instability of right knee joint 01/12/2024 Sprain of medial collateral ligament of right kn ee 01/12/2024 Anxiety 10/17/2019 Asthma 10/17/2019 Cervical myelopathy 10/17/2019 Increased frequency of urination 10/17/2019 Migraine without aura 10/17/2019 Optic neuritis 10/17/2019 Spasticity 10/17/2019 Resolved Problems Problem Noted Date Diagnosed Date Resolved Date Multiple sclerosis 01/12/2021 5 Encounters Date Type Department Care Team Description 03/31/2025 1:00 PM EDT Procedure visit [facility] [address] [place] [address] Rafael Odonnell MD Czaplicki, Allison, Au.D Tinnitus of both ears (Primary Dx); Dizziness and giddiness from Last 3 Months Immunizations Immunization Administration Dates Next Due Influenza Virus Trivalent Sp lit Vaccine (MDV) IM 05/11/2007,06/09/2006 Influenza Whole 04/14/2011,04/01/2010 Influenza, Trivalent (FLUARI X, AFLURIA, FLULAVAL, FLUZONE) Preservative Free IM 06/07/2024,06/05/2023,04/21/2021,04/01,03/25/2019 Pneumococcal Polysaccharide 23-Valent 03/09/2018 Family History Medical History Relation Name Comments Autoimmune disease Father Cancer Father Bleeding Disorder Mother Cancer Mother Bleeding Disorder Sister Migraines Sister Stroke Sister Relation Name Status Comments Father Mother Sister Social History Tobacco Use Types Packs/Day Years Used Date Smoking Tobacco: Former Cigarettes Q uit: 07/03/2023 Passive Smoke Exposure: Past Smokeless Tobacco: Never Tobacco Cessation:Counseling Given: Not [...] Sign Reading Time Taken Comments Blood Pressure - - Pulse - - Temperature - - Respiratory Rate - - Oxygen Saturation - - Inhaled Oxygen Concentration - - Weight 120 kg (265 lb) 03/31/2025 12:43 PM EDT Height 162.6 cm (5' 4 ) 03/31/2025 12:43 PM EDT Body Mass Index 45.49 03/31/2025 12:43 PM EDT Plan of Treatment Health Maintenance Due Date Last Done Comments Hepatitis C Virus Screening 1984 HIV Screening 1997 DTaP/Tdap/Td Vaccines (1 - Tdap) 2003 Hepatitis B Vaccines (1 of 3 - 19+ 3-dose series) 2003 Pap Smear (Ages 21-65) 2005 Pneumococcal Vaccine: Pediat reese (0-5 Years) and At-Risk Patients (6 to 49 Years) (2 of 2 - PCV) 03/09/2019 03/09/2018 Mammogram 2024 Influenza Vaccine 01/31/2025 06/07/2024, , 04/21/2021, Additional history exists COVID-19 Vaccine ( - 2023-2 5 season) 2025 HPV Vaccines (No Doses Required) Completed Insurance MEDICARE PART A & B Care Teams Wood Router Hand Relationship Specialty Start Date End Date Man Arteaga MD [address] [facility] [address] [place] [address] PCP - General 03/31/25
--- OUTSIDE RECORDS SUMMARY | 2025-05-15 08:22 | XMS_ITS | Encounter Summary ---
Author Organization [facility] Address [address] [place] [address] Phone Care Team Providers Care Digital Production Artist Name Role Phone Man Arteaga MD Primary Care Provider [phone] Encounter Details Date Type Department Care Team (Late st Contact Info) Description 12/19/2024 Procedure Pass [facility], Main [place] [address] [place] [address], Floor [address] [place] [address] Social History Tobacco Use Types Packs/Day Years [...] 12:45 PM EDT Gema Burger RN * Sanders Suicide Severity Rating Scale (Screener/Recent Self-Report) Question [...] on filedocumented in this encounter Care Teams Digital Production Artist Relationship Specialty Start Date End Date Jenni, Man F, MD [address] [place] [address] PCP - General Internal Medicine 12/19/24 documented as of this encounter Additional Source Comments The information contained in this document represents components of the legal health record. It is not the complete legal health record.[facility]
== END 2025-05-15 08:54 | disposition home or self-care (01) ==
LOC: HO.HGI 08:08
PROVIDERS: Visit Provider Nurse Practitioner Family
DX: K58.2 Mixed irritable bowel syndrome (principal)
CPT/HCPCS: 99213

== ENCOUNTER → 2025-05-15 08:08 | Outpatient (BNVA) | payer MEDICARE, MEDICAID, SELFPAY | PROVIDERS: Visit Provider Nurse Practitioner Family | DX: K58.2 Mixed irritable bowel syndrome (principal); E66.9 Obesity, unspecified; Z68.42 Body mass index [BMI] 45.0-49.9, adult; Z72.0 Tobacco use | CPT/HCPCS: 99212 ==